=== PATIENT | female | born 1965 | race Caucasian/White ===

== ENCOUNTER → 2018-10-28 08:38 | Outpatient (CLI) | payer OTHER, SELFPAY ==
[2018-10-28 12:34] LABS: ALB/GLOB Ratio 1.2 RATIO (0.9-2.4); AST(SGOT) 15 U/L (15-37); Alanine Aminotransfer ALT/SGPT 29 U/L (13-56); Albumin, Serum 3.7 g/dL (3.2-5.0); Alkaline Phosphatase 53 U/L (45-117); Anion Gap 8 (5-15); BUN 20 mg/dL (7-18); Calcium,Total 8.7 mg/dL (8.5-10.1); Chloride 109 mmol/L (98-107); Cholesterol 153 mg/dL (200); Creatinine, Serum 0.77 mg/dL (0.55-1.02); EST Glomerular Filtration Rate 84 mL/min (>60); Est Glom Filt Rate - Afr Amer 101 mL/min (>60); Glucose 77 mg/dL (74-106); High Density Lipoprotein 38 mg/dL; Protein, Total 6.7 g/dL (6.4-8.2); Sodium Level 141 mmol/L (136-145); Triglycerides 75 mg/dL; Very Low Density Lipoprotein 15 mg/dL (5-40)
[2018-10-28 12:40] LABS: Absolute Lymphocyte Count 1.84 X10^3/ul (0.83-4.51); Absolute Neutrophil Count 4.1 X10^3/uL (2.0-7.7); Basophil# 0.02 X10^3/uL; Basophil% 0.3 % (0-1); Eosinophil# 0.23 X10^3/uL; Eosinophils% 3.4 % (0-5); Hematocrit 45.9 % (37-47); Hemoglobin 15.4 g/dl (12.0-15.0); Lymphocyte # 1.84 X10^3/ul (4.0); Lymphocyte % 27.2 % (19-41); Mean Corp Hgb Conc 33.6 g/gl (32-36); Mean Corpuscular Hgb 30.4 pg (27.0-32.0); Mean Corpuscular Volume 90.7 fL (81-99); Mean Platelet Vol. 10.4 fl (6.2-12.0); Monocyte# 0.51 X10^3/uL; Monocyte% 7.5 % (0-10); Neutrophil # 4.14 X10^3/uL (2.7-7.7); Neutrophil % 61.3 % (47-70); Platelet Count 272 K/mm3 (150-450); RBC Distribution Width CV 13.5 % (11.6-14.6); RBC Distribution Width SD 44.1 fl (35.1-43.9); Red Blood Count 5.06 M/mm3 (4.2-5.4); White Blood Count 6.8 K/mm3 (4.4-11.0)
[2018-10-28 12:42] LABS: POSITIVE COUNT NO; POSITIVE DIFFERENTIAL NO; POSITIVE MORPHOLOGY NO
--- OUTSIDE RECORDS SUMMARY | 2018-12-30 03:52 | XMS RPT_ITS ---
:1965 Author Organization OHIP Care Team Providers Name Role Phone Chary Bisi Attending Unavailable Malys, Bisi Primary Care Unavailable Wallingford, Ekaterina Attending Unavailable Malys, Bisi Referring Unavailable Malys, Bisi Primary Care Unavailable Treva, Smith Attending Unavailable Malys, Bisi Referring Unavailable Malys, Bisi Primary Care Unavailable Aleja, Ekaterina Attending Unavailable Malys, Bisi Referring Unavailable Malys, Bisi Primary Care Unavailable Wallingford, Ekaterina Attending Unavailable Malys, Bisi Referring Unavailable PROBLEMS PROBLEMS DATE TYPE CONDITION / CODE ATTENDING STATUS SOURCE 11/19/2017 Unknown Z30.431 - Encounter Ekaterina Masterson for routine Community checking of Hospital intrauterine Repository contraceptive device / Z30.431(ICD-10) 10/08/2017 Unknown N92.6 - Irregular Aleja, Ekaterina Active [facility] menstruation, Community unspecified / Hospital N92.6(ICD-10) Repository 09/24/2017 Unknown Z01.411 - Encounter [place], Molly Active [facility] for gynecological Community examination Hospital (general) (routine) Repository with abnormal findings / Z01.411(ICD-10) 09/24/2017 Unknown N92.0 - Excessive Aleja, Ekaterina Active [place] and frequent Community menstruation with Hospital regular cycle / Repository N92.0(ICD-10) 09/24/2017 Unknown Z12.4 - Encounter WallingfordMoisey Active [place] for screening for Community malignant neoplasm Hospital of cervix / Repository Z12.4(ICD-10) PROCEDURES PROCEDURES No Procedure Records FoundRESULTS RESULTS COMPREHENSIVE METABOLIC Collected: 10/28/2018 Status: F Source: OPAL PROFIL 8:40 AM [facility] H[facility]PITAL REPOSITORY TYPE CODE TESTS RESULT OUT OF RANGE REFERENCE UNITS LAB L501.0100 74-106 mg/dL Normal GLU 77 Result Comment: Please note revised GLUCOSE reference range effective 2017. LAB L501.1000 7-18 mg/dL High BUN 20 LAB L501.1100 0.55-1.02 mg/dL Normal CREAT,SERUM 0.77 Result Comment: The validity of the calculated GFR AND GFRAA in patients over 70 years has not been determined. Clinical correlation is essential. LAB L501.1110 >60 mL/min Normal EST GFR 84 Result Comment: Non- GFR Calc LAB L501.1115 >60 mL/min Normal EST GFR - AA 101 Result Comment: GFR Calc LAB L501.1300 10-20 RATIO High BUN/CRE 26.0 LAB L501.1500 6.4-8.2 g/dL T Normal PROT 6.7 LAB L501.1800 3.2-5.0 g/dL Normal ALB 3.7 LAB L501.1950 2.2-4.2 g/dL Normal GLOB 3.0 LAB L501.2000 0.9-2.4 RATIO Normal A/G 1.2 LAB L501.2200 8.5-10.1 mg/dL CA Normal 8.7 LAB L501.4100 15-37 U/L Normal AST 15 LAB L501.4305 45-117 U/L Normal ALK P 53 LAB L501.4405 13-56 U/L Normal ALT 29 LAB L501.4600 0.20-1.00 mg/dL T Normal BILI 0.50 LAB L501.5300 136-145 mmol/L NA Normal 141 LAB L501.5600 3.5-5.1 mmol/L K Normal 4.0 LAB L501.5900 98-107 mmol/L High CL 109 LAB L501.6100 21.0-32.0 mmol/L Normal CO2 24.0 LAB L501.6200 5-15 Normal GAP 8 Performed By: #### L500.4050, L500.4100 #### [facility] [address] [place], [place], [id number] LIPID PROFILE Collected: 10/28/2018 Status: F Source: DIXIE 8:40 AM [facility] REPOSITORY TYPE CODE TESTS RESULT OUT OF RANGE REFERENCE UNITS LAB L501.4900 200 mg/dL Normal CHOL 153 Result Comment: <200 mg/dL Desirable 200-240 mg/dL Borderline >240 mg/dL High Risk LAB L501.5000 mg/dL Normal TRIG 75 Result Comment: The drugs N-Acetylcysteine and Metamizole may falsely depress this assay. Serum Triglycerides Reference Interval Normal <150 mg/dL Borderline high 150 - 199 mg/dL High 200 - 499 mg/dL Very High > or = 500 mg/dL LAB L501.6400 mg/dL Low HDL 38 Result Comment: The drugs N-Acetylcysteine and Metamizole may falsely depress this assay. Reference Range HDL <40 mg/dL Low HDL Cholesterol HDL >or= 60 mg/dL High HDL Cholesterol LAB L501.6500 0-130 mg/dL Normal LDL 100 LAB L501.6600 5-40 mg/dL Normal VLDL 15 Performed By: #### L500.4050, L500.4100 #### [facility] [address] [place], [place], [address] CBC W/DIFF, AUTOMATED Collected: 10/28/2018 Status: F Source: DIXIE 8:40 AM [facility] REPOSITORY TYPE CODE TESTS RESULT OUT OF RANGE REFERENCE UNITS LAB L100.1000 4.4-11.0 K/mm3 Normal WBC 6.8 LAB L100.1200 4.2-5.4 M/mm3 Normal RBC 5.06 LAB L100.1300 12.0-15.0 g/dl High HGB 15.4 LAB L100.1400 37-47 % Normal HCT 45.9 LAB L100.1500 81-99 fL Normal MCV 90.7 LAB L100.1600 27.0-32.0 pg Normal MCH 30.4 LAB L100.1700 32-36 g/gl Normal MCHC 33.6 LAB L100.1810 11.6-14.6 % Normal RDW CV 13.5 LAB L100.1820 35.1-43.9 fl High RDW SD 44.1 LAB L100.1900 150-450 K/mm3 Normal PLT 272 LAB L100.2000 6.2-12.0 fl Normal MPV 10.4 LAB L100.2100 47-70 % Normal NEUT% 61.3 LAB L100.2200 19-41 % Normal LY% 27.2 LAB L100.2300 0-10 % Normal MONO% 7.5 LAB L100.2400 0-5 % Normal EO% 3.4 LAB L100.2500 0-1 % Normal BASO% 0.3 LAB L100.2550 0.0-0.9 % Normal IM GRAN % 0.300 Result Comment: IG% - Immature Granulocytes (promyelocytes, myelocytes and metamyelocytes) > 1% indicates that a LEFT SHIFT is Present. LAB L100.2620 2.0-7.7 X10 3/uL Normal Absolute Neut 4.1 LAB L100.2720 0.83-4.51 X10 3/ul Normal Absolute Lymph 1.84 Performed By: #### L100.0100 #### [facility] [address] [place], [address] COMPETITIVE INTELLIGENCE MANAGER OFFICE VISIT Observed: 08/11/2018 Status: F Source: OPAL REPORT 10:21 AM [facility] REPOSITORY [facility] [address] [place] [address] OFFICE VISIT Date of Service: 09/24/17 MR#: [id number] Acct: [id number] Name: BISI FORTE Rep #: [id number] : 1965 Provider: YURI Masterson Age/Sex: 52/F [place] [facility] Status: Signed with Addenda ADDENDUM by YURI Masterson on 08/11/18 at 1021 Addendum entered and electronically signed by OFELIA Mcmillan 08/11/18 10:21: Rectal exam was deferred. No masses palpated Assessment AND Plan 1. Encounter for gynecological examination with abnormal finding Z01.411; Z01.411 Plan - OFELIA Mcmillan Completed breast and pelvic exam Reviewed diet and exercise Pap thin prep pap collected Mammogram scheduled Colonoscopy encouraged RTO 1 year, prn with problems Ekaterina Masterson FOOT DOCTOR 2. Menorrhagia with regular cycle N92.0; N92.0 Plan - OFELIA Mcmillan Discussed insertion, use, benefits, risks of IUD. Will plan mirena IUD with next menses. Written formation given. She will call with onset of menses. Insurance auth to nurse to complete 3. Pap smear for cervical cancer screening Z12.4 Plan - OFELIA Mcmillan thin prep pap and HPV collected Plan Detail Other Medications Discontinued: levonorgestrel Discontinued Reason: Of1 insert Intrauterine ONCE #1 0RF Z97.5 fice Medication has been Documented as giv en hydrocodone-acetaminophen 5-325 mg Disc1 - 2 tabs PO Q4H PRN PRN 20 tabs 0RF Nataliya ontinued Reason: Pt no longer taking n 08/11/18 1021 <Electronically signed by Ekaterina GILBERT> Date Ekaterina Masterson cc: * Signed Intake Vital Signs09/24/17 Height 5 ft 7 in 09/24/17 Weight: 195 lb 09/24/17 Body Mass Index (BMI) 30.5 09/24/17 Blood Pressure 138/84 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 Chief Complaint: annual Is patient in pain?: No Allergies metronidazole [From Flagyl] Allergy (Verified 09/24/17 10:40) Rash Metronidazole HCl [From Flagyl] Allergy (Verified 09/24/17 10:40) Rash Medications Cyclobenzaprine [Flexeril] 10 mg PO TID PRN #20 tab 09/16/13 [Rx] Metoprolol(XL)Succ [Toprol Xl] 25 mg PO DAILY 09/16/13 [History Confirmed 09/24/17] Simvastatin [Zocor] 20 mg PO QHS 09/16/13 [History Confirmed 09/24/17] metoprolol succ 50 mg-hydrochlorothiazide 12.5 mg tablet,ext.rel 24 hr 1 tab PO Q24H 09/24/17 [History Confirmed 09/24/17] Pregancy History 2 Elective abortions Hx Para 2 Spontaneous abortions Past Pregnancies Del. DatName GA/WeeksOutcome Route [facility] WeigIndinoraht GLaanurag LgAnesthesDel LocaProviderFOB e ht en ia tn Unknown 1992 Tre[place] Female sey Unknown 1996 Pat erika [facility] Medical History Menorrhagia (Chronic) Acute pyelonephritis (Chronic) GERD (gastroesophageal reflux disease) (Chronic) HLD (hyperlipidemia) (Chronic) MVP (mitral valve prolapse) (Chronic) Oral contraceptive use (Chronic) Mitral valve prolapse (Acute) Surgical History H/O right breast biopsy (Acute) Hx of appendectomy (Acute) Social History Smoking Status: Never smoker substance use type: does not use what type of physical activity do you participate in: walking, weight training frequency: 1-2 times per week seatbelt use: always do you feel safe at home: Yes additional social history: Hyun HPI Encounter for routine gynecological examination: Details: BISI FORTE is a 52 year old who presents for annual exam. Has menses every month last 7 days and heavy. Went off OCP due to hypertension and mother hx of CVA. Interested in Mirena IUD as friend has one and works well for her. Last PAP: 2011 History of abnormal PAP: no Last mammogram: 09/2016 History of abnormal mammogram: neg biopsy Colon cancer screening: none ROS Const Constitutional: Denies fatigue, weight gain or weight loss Cardio Card: Denies chest pain Resp Resp: Denies cough or shortness of breath with activity GI GI: Denies abdominal pain, constipation, change in stools, vomiting or bloating : Reports as per HPI; denies urinary frequency, pelvic pain, urinary urgency, vaginal discharge, vaginal itching, urinary incontinence or difficulty urinating Exam Const General: cooperative, healthy appearing, no acute distress, well developed Orientation: alert, oriented to person, oriented to place [facility] Head: normal to inspection Neck Neck: normal visual inspection Thyroid: thyroid normal Lymphatic: no lymphadenopathy noted Resp Effort AND Inspection: normal respiratory effort Auscultation: clear to auscultation bilaterally Cardio Rate: regular rate Rhythm: regular rhythm GI Palpation: soft, nontender, no masses Rectal Exam: mass, deferred General: bimanual renal exam normal bilaterally External Female Exam: normal external appearance, normal appearance of the urethra Urethra: normal appearance of the urethra Speculum Exam - Vagina: normal appearance of the vagina, normal vaginal discharge Speculum Exam - Cervix: normal appearance of the cervix, cervical os open, other (thin prep pap with HPV collected) Bimanual Exam- Vagina AND Uterus: normal bimanual exam, uterine size normal, uterine shape normal, uterine mobility normal Bimanual Exam- Adnexa, other: normal adnexae, pelvic support normal, no adnexal masses, adnexae non-tender Pelvic Support: normal OB/External AND Speculum: cervical os open Speculum Exam: cervical os open Neuro General: alert, oriented x3 Psych Affect: normal affect Assessment AND Plan 1. Encounter for gynecological examination with abnormal finding Z01.411; Z01.411 Plan Completed breast and pelvic exam Reviewed diet and exercise Pap thin prep pap collected Mammogram scheduled Colonoscopy encouraged RTO 1 year, prn with problems Ekaterina Masterson FOOT DOCTOR 2. Menorrhagia with regular cycle N92.0; N92.0 Plan Discussed insertion, use, benefits, risks of IUD. Will plan mirena IUD with next menses. Written formation given. She will call with onset of menses. Insurance auth to nurse to complete 3. Pap smear for cervical cancer screening Z12.4 Plan thin prep pap and HPV collected Plan Detail Other Medications Discontinued: hydrocodone-acetaminophen 5-325 mg Discontinued Reason:1 - 2 tabs PO Q4H PRN PRN Pain Pt no longer taking 09/24/17 1127 <Electronically signed by Ekaterina Masterson ICT BUSINESS DEVELOPMENT MANAGER-C> Date Ekaterina Masterson ICT BUSINESS DEVELOPMENT MANAGER-C Cosigner Signature: Date (if applicable) CC: CARDIOLOGY VISIT Observed: 01/22/2018 Status: F Source: OPAL REPORT 2:18 PM [facility] REPOSITORY [facility] [address] [place] [address] OFFICE VISIT Date of Service: 01/21/18 MR#: [id number] Acct: [id number] Name: BISI FORTE Rep #: [id number] : 1965 Provider: Smith Tilley MD Age/Sex: 52/F Location[place] [facility] [place] Status: Signed HPI HPI Chief Complaint: Follow-up visit. Details: BISI FORTE, is a 52 F who presents to the office today for a follow-up visit for palpitations. She has a history of mitral valve prolapse hyperlipidemia and previous atrial fibrillation she had been seen last fall due to recurrence of her palpitations she says that since the visit and being placed on the beta-gerri the episodes and frequency of these have reduced quite significantly. She has had no neck arm or jaw discomfort suggest angina no dizziness or diaphoresis no near syncope or syncope. You do remember we performed an echocardiogram at that time with demonstrated ejection fraction of 55% with normal valvular apparatus. She continues to do well otherwise. Her physical exam demonstrates clear lung otero regular rate and rhythm and no pedal edema. Intake Vital Signs01/21/18 Height 5 ft 7 in 01/21/18 Weight: 190 lb 01/21/18 Body Mass Index (BMI) 29.7 01/21/18 Blood Pressure 120/80 Intake Visit Reasons: 6 M FU (needs Wed appts) Is patient in pain?: No Allergies metronidazole [From Flagyl] Allergy (Verified 01/21/18 10:32) Rash Metronidazole HCl [From Flagyl] Allergy (Verified 01/21/18 10:32) Rash Medications Metoprolol(XL)Succ [Toprol Xl] 25 mg PO DAILY 09/16/13 [History Confirmed 01/20/18] Simvastatin [Zocor] 20 mg PO QHS 12/12/13 [History Confirmed 01/20/18] levonorgestrel 20 mcg/24 hr (5 years) intrauterine device 1 insert INTRAUTERINE ONCE #1 ea 10/08/17 [Rx Confirmed 01/20/18] magnesium 250 mg tablet 250 mg PO QDAY 01/20/18 [History Confirmed 01/20/18] lactobacillus combination no.11 15 billion cell sprinkle capsule 1 cap PO QDAY 01/21/18 [History Confirmed 01/21/18] metoprolol succinate ER 50 mg tablet,extended release 24 hr 50 mg PO QDAY tab 01/21/18 [History Confirmed 01/21/18] Ejection fraction %: 55 to 59 [facility] Medical History Nonrheumatic mitral (valve) prolapse (Chronic) History of supraventricular tachycardia (Chronic) History of atrial fibrillation (Chronic) Hyperlipidemia (Chronic) GERD (gastroesophageal reflux disease) (Chronic) Surgical History H/O right breast biopsy (Chronic) Hx of appendectomy (Chronic) Family History Mother CVA (cerebral vascular accident) Hypertension Hyperlipidemia Brain aneurysm Father Hyperlipidemia Hypertension Brother Hyperlipidemia Hypertension Grandmother Alzheimer disease Grandfather Alzheimer disease Heart disease Social History Smoking Status: Never smoker substance use type: does not use what type of physical activity do you participate in: walking, weight training frequency: 1-2 times per week seatbelt use: always do you feel safe at home: Yes additional social history: Hyun ROS Const Const: Negative for fatigue, weakness, body ache, fever(s), headache(s), chills, frequent falls, night sweats, daytime sleepiness, difficulty sleeping, excessive sweating, weight gain, weight loss, increased appetite, poor appetite, anorexia or other Eyes Eyes: Negative for blind spots, loss of peripheral vision, transient loss of vision, blurry vision, change in vision, double vision, floaters, tunnel vision or other ENT ENT: Negative for headache(s), dizziness, hearing loss, tinnitus, Nosebleed/epistaxis, balance problems, post nasal drip, lip swelling, tongue swelling, bleeding gums, hoarseness, neck pain, dry mouth or other Cardio Chest Pain: No Palpitations: Yes (Rarely) Edema: None Muscle aches with walking: None Resp Respiratory: Negative for SOB with activity, SOB at rest, SOB orthopnea\SOB lying down, Coughing up blood/hemoptysis, chest congestion, pain on inspiration, snoring, stridor, wheezing, crackles, paroxysmal nocturnal dyspnea or other GI GI: Negative nausea, vomiting, heartburn, constipation, belching, bloating, cramping, vomiting blood/hematemesis, bright, red blood in stools, black,tarry stools, loose stools, Difficulty Swallowing or other : Negative for hematuria, frequent nighttime urination/ nocturia, erectile dysfunction or abnormal vaginal bleeding Musc Musc: Negative for balance problems, muscle aches/ myalgia, muscle weakness or joint pain Skin Skin: Negative redness, non-healing lesions, rash, unusual bruising, skin ulcer, wounds, jaundice or other Neuro Neuro: Negative for weakness, headache(s), frequent falls, blurry vision, double vision, dizziness, lightheadedness, near syncope, syncope, orthostatic symptoms, confusion, memory loss, restless legs, vertigo, seizures, lack of coordination or other John Hematologic/Lymphatic: Negative for easy bleeding, easy bruising, enlarged lymph nodes or other Endo Endo: Negative for fatigue, excessive sweating, cold intolerance, heat intolerance, flushing, increased thirst/drinking, increased hunger, hair loss, hair growth or other Psych Psych: Negative for anxiety, depression, thoughts of harming anyone, thoughts of harming yourself, visual hallucinations, panic attacks or audible hallucinations Allergy Allergy/Immunology: Negative for lip swelling, Negative for tongue swelling, Negative for rash, Negative for throat swelling, Negative for hives Cardiology Exam Const Appearance: cooperative, healthy appearing, well developed, well groomed and no acute distress Nutritional Appearance: well nourished and average body habitus Orientation: alert, awake and oriented x3 Head Head: normal to inspection, normocephalic and atraumatic Ears: hearing grossly normal bilaterally and external ears normal Nose: external nose normal, nasal mucous membranes and turbinates normal, nares normal, septum normal, no nasal discharge Face and Sinus: face symmetric Mouth: oral mucosae normal, tongue normal, oropharynx normal and moist mucous membranes Teeth and gingiva: dentition normal Throat: posterior oropharynx normal, tonsils normal and uvula midline Eyes General: appearance normal, both eyes and all related structures Eyelids: eyelids normal Conjunctivae: conjunctivae normal Pupils: PERRL, normal by confrontation and accommodation normal EOM: EOM intact bilaterally Neck Neck: normal visual inspection, trachea midline and no JVD JVD: +5 Carotids: normal carotid upstroke and bounding pulses Chest Chest inspection: normal inspection of the chest, symmetric chest movement and normal respiratory effort Auscultation: Bilateral: Clear to Auscultation Cardio Palpation: normal PMI Rate: regular rate Rhythm: regular rhythm Heart sounds: S1 normal, S2 normal and normal, physiologic split S2; negative rub, gallop or murmur GI GI: normal to inspection, soft, no hepatosplenomegaly and bowel sounds present Neuro General: alert, awake, oriented x3, no focal sensory deficit, gait normal and moves all extremities Skin Skin: no rashes or lesions noted Extremities Pulses: Normal: Right Femoral Pulse, Left Femoral Pulse, Right Dorsalis Pedis Pulse, Left Dorsalis Pedis Pulse, Right Posterior Tibial Pulse, Left Posterior Tibial Pulse, Right Radial Pulse, Left Radial Pulse Lower Extremity Edema: None: Bilateral Musculoskel Musculoskeletal: No joint tenderness Psych Psychological: normal affect Assessment AND Plan 1. History of supraventricular tachycardia Z86.79 Plan She does have a history of palpitations which appears to be much improved on the current beta-gerri dosage that she is taking. My recommendation would be for her to continue the same. On a suggest that she make any changes. She has also lost some weight and if the above continues we may be to reduce the dose further to 50 mg once a day. 2. Pure hypercholesterolemia E78.00; E78.0 Plan Her lipid profile at this time appears to be decent with a total cholesterol 169 LDL of 101 and HDL 37 she remains on her low intensity statin which will be continued. Thank you for allowing me to participate in the care of your patient. 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) Coding Level of Care Code Off vis,est,level 3 Diagnoses History of supraventricular tachycardia Z86.79 Pure hypercholesterolemia E78.00; E78.0 Hyperlipidemia type: pure hypercholesterolemia Coding Level of Care Code Off vis,est,level 3 Diagnoses History of supraventricular tachycardia Z86.79 Pure hypercholesterolemia E78.00; E78.0 Hyperlipidemia type: pure hypercholesterolemia 01/22/18 1418 <Electronically signed by Smith Tilley MD> Date Smith Tilley MD Cosigner Signature: Date (if applicable) CC: Bisi Diez DO COMPETITIVE INTELLIGENCE MANAGER OFFICE VISIT Observed: 11/19/2017 Status: F Source: OPAL REPORT 9:16 AM [facility] 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: No Is patient in pain?: No Allergies metronidazole [From Flagyl] Allergy (Verified 11/19/17 09:00) Rash Metronidazole HCl [From Flagyl] Allergy (Verified 11/19/17 09:00) Rash Medications Metoprolol(XL)Succ [Toprol Xl] 25 mg PO DAILY 09/16/13 [History Confirmed 11/19/17] Simvastatin [Zocor] 20 mg PO QHS 09/16/13 [History Confirmed 11/19/17] levonorgestrel 20 mcg/24 hr (5 years) intrauterine device 1 insert INTRAUTERINE ONCE #1 ea 10/08/17 [Rx Confirmed 11/19/17] metoprolol succinate ER 50 mg tablet,extended release 24 hr 50 mg PO BID 10/08/17 [History Confirmed 11/19/17] Is last menstrual period known: No Post menopausal: No Patient : No : No PFSH Medical History GERD (gastroesophageal reflux disease) (Acute) Hyperlipidemia (Acute) Mitral valve prolapse (Acute) Surgical History H/O right breast biopsy (Acute) Hx of appendectomy (Acute) Family History Mother CVA (cerebral vascular accident) Hypertension Hyperlipidemia Brain aneurysm Father Hyperlipidemia Hypertension Brother Hyperlipidemia Hypertension Grandmother Alzheimer disease Grandfather Alzheimer disease Heart disease Social History Smoking Status: Never smoker substance use type: does not use what type of physical activity do you participate in: walking, weight training frequency: 1-2 times per week seatbelt use: always do you feel safe at home: Yes additional social history: Hyun KOVACS STRING CHECK: Details: BISI FORTE is a 52 year old who presents for recheck of mirena IUD placed 10/08/17. Denies any irregular spotting or cramping. Very light 1 day menses. Denies other concerns. Pregancy History 2 Elective abortions Hx Para 2 Spontaneous abortions Past Pregnancies Del. DatName GA/WeeksOutcome [facility] tn Unknown 1992 Tre[place] Female sey Unknown 1996 Pat erika Exam General: bladder normal to palpation External Female Exam: normal external appearance, normal appearance of the urethra Urethra: normal appearance of the urethra Speculum Exam - Vagina: normal appearance of the vagina, normal vaginal discharge, nontender, no lesions Speculum Exam - Cervix: normal appearance of the cervix, other (smooth, nonfriable, IUD strings noted 3cm from os) Bimanual Exam- Vagina AND Uterus: bladder normal to palpation, normal bimanual exam, uterine size normal, uterine shape normal, uterine mobility normal, uterus non-tender Bimanual Exam- Adnexa, other: normal adnexae, no adnexal masses, adnexae non-tender Assessment AND Plan Problems 1. IUD check up Z30.431 Plan Proper placement of IUD RTO annual exam, prn problems Coding Level of Care Code Off vis,est,level 3 Diagnoses IUD check up Z30.431 11/19/17 0916 <Electronically signed by Ekaterina GILBERT> Date Ekaterina GILBERT Cosigner Signature: Date (if applicable) CC: COMPETITIVE INTELLIGENCE MANAGER OFFICE VISIT Observed: 11/12/2017 Status: F Source: OPAL REPORT 8:25 AM [facility] [address] [address] [place] [address] OFFICE VISIT Date of Service: 10/08/17 MR#: [id number] Acct: [id number] Name: VNAESSABISI Jhonny Rep #: [id number] : 1965 Provider: YURI Masterson Age/Sex: 52/F Location: [facility] Status: Signed Intake Vital Signs10/08/17 Height 5 ft 7 in 10/08/17 Weight: 198 lb 10/08/17 Body Mass Index (BMI) 31.0 10/08/17 Blood Pressure 132/72 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 Visit 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: MIRENA INSERTION Chief Complaint: IUD Rolled Glass Crosscutter Required: No Is patient in pain?: No Allergies metronidazole [From Flagyl] Allergy (Verified 10/08/17 11:24) Rash Metronidazole HCl [From Flagyl] Allergy (Verified 10/08/17 11:24) Rash Medications Metoprolol(XL)Succ [Toprol Xl] 25 mg PO DAILY 09/16/13 [History Confirmed 09/24/17] Simvastatin [Zocor] 20 mg PO QHS 09/16/13 [History Confirmed 09/24/17] levonorgestrel 20 mcg/24 hr (5 years) intrauterine device 1 insert INTRAUTERINE ONCE #1 ea 10/08/17 [Rx Confirmed 10/08/17] metoprolol succinate ER 50 mg tablet,extended release 24 hr 50 mg PO BID 10/08/17 [History Confirmed 10/08/17] Is last menstrual period known: Yes Last Menstral Period: 10/04/17 Post menopausal: No Patient : No : No PFSH Medical History Menorrhagia (Chronic) Acute pyelonephritis (Chronic) GERD (gastroesophageal reflux disease) (Chronic) HLD (hyperlipidemia) (Chronic) MVP (mitral valve prolapse) (Chronic) Oral contraceptive use (Chronic) GERD (gastroesophageal reflux disease) (Acute) Hyperlipidemia (Acute) Mitral valve prolapse (Acute) Surgical History H/O right breast biopsy (Acute) Hx of appendectomy (Acute) Family History Mother CVA (cerebral vascular accident) Hypertension Hyperlipidemia Brain aneurysm Father Hyperlipidemia Hypertension Brother Hyperlipidemia Hypertension Grandmother Alzheimer disease Grandfather Alzheimer disease Heart disease Social History Smoking Status: Never smoker substance use type: does not use what type of physical activity do you participate in: walking, weight training frequency: 1-2 times per week seatbelt use: always do you feel safe at home: Yes additional social history: Hyun Pregancy History 2 Elective abortions Hx Para 2 Spontaneous abortions Past Pregnancies Del. DatName GA/WeeksOutcome [facility] LgAnesthesDel LocaProviderFOB e ht en tn Unknown 1992 [place] Female sey Unknown [facility] MIRENA INSERTION: Details: BISI FORTE is a 52 year old who presents for mirena IUD insertion for menorrhagia Female Reproductive History Last Menstral Period: 10/04/17 Office Procedures IUD Insertion IUD GC/Chlamydia:: not done Test: Yes Negative Consent Signed: Yes Time out checklist: patient, procedure, site marked/identified, positioning of patient, supplies available, allergies confirmed, team agrees on procedure IUD: Yes Mirena Time out time: 11:39 Lot number: [id number] date: 01/05/20 Details: Sign in Communication: Completed Sign out documentation: Completed The uterus sounded to 8 cm. After prepping the cervix with betadine and using sterile technique, the cervix was grasped with a single tooth tenaculum and the IUD was inserted without difficulty and the string was cut to 3cm from the external os of the cervix. All instruments were removed from the vagina and excellent hemostasis was noted. Procedure Summary: patient tolerated the procedure well without complication. Mirena IUD IUD Details: Sign in Communication: Completed Sign out documentation: Completed The uterus sounded to [] cm. After prepping the cervix with betadine and using sterile technique, the cervix was grasped with a single tooth tenaculum and the IUD was inserted without difficulty and the string was cut to 3cm from the external os of the cervix. All instruments were removed from the vagina and excellent hemostasis was noted. Procedure Summary: patient tolerated the procedure well without complication. levonorgestrel 20 mcg/24 hr (5 years) intrauterine device 1 insert Intrauterine ONCE IUD Details: Sign in Communication: Completed Sign out documentation: Completed The uterus sounded to [] cm. After prepping the cervix with betadine and using sterile technique, the cervix was grasped with a single tooth tenaculum and the IUD was inserted without difficulty and the string was cut to 3cm from the external os of the cervix. All instruments were removed from the vagina and excellent hemostasis was noted. Procedure Summary: patient tolerated the procedure well without complication. Office Meds levonorgestrel Performing Provider: OFELIA Mcmillan Administered by: OFELIA Mcmillan on 10/08/17 13:00 Dose Route Admin Location Lot Number Expiration DateNDC Manager Critical Care 1 insert Intrauterine uterus [id number] 01/24/20 05110-432-31 BEN,PHARM DIV Results BMSPREGUR Office , Urine Negative Last Edit by Viji Brizuela on 10/08/17 11:30 Assessment AND Plan Problems 1. Encounter for IUD insertion Z30.430 2. Menorrhagia with regular cycle N92.0 Plan Handout and reviewed S AND S infection RTO 6 weeks Orders Orders: Medications New: Discontinued: levonorgestrel Discontinued Reason1 insert Intrauterine ONCE Z97.5 OFELIA Mcmillan : Office Medication has been Documen lewis as given Plan Detail Follow Up 6 Weeks (IUD check) 11/12/17 0829 <Electronically signed by Ekaterina GILBERT> Date Ekaterina Nances ICT BUSINESS DEVELOPMENT MANAGER-C Cosigner Signature: Date (if applicable) CC: ALLERGIES ALLERGIES DATE TYPE / CODE NAME / CODE REACTION SEVERITY SOURCE 01/21/2018 Drug Metronidazole Rash Unknown [place] Allergy/416 HCl/[id number](RXNO [facility] [id number]([facility] ED [facility]) Repository 01/21/2018 Drug metronidazole/F0060 Rash Unknown [place] Allergy/416 55000(RXNO) [facility] [id number]([facility]) Repository ENCOUNTERS ENCOUNTERS ADMIT/DISCHARGE ACCOUNT ADMITTING ENCOUNTER LOCATION SOURCE NUMBER CLASS 10/28/2018 [id number] Ambulatory [place] 8 [facility] ing:BFHLAB Repository 01/21/2018/ [id number] Ambulatory BMSBuilding:B [place] 8 5 [facility] Repository 11/19/2017/ [id number] Ambulatory BMSBuilding:B [place] 8 6 [facility] Repository 10/08/2017/ [id number] Ambulatory BMSBuilding:B [place] 8 6 [facility] Repository 09/24/2017/ [id number] Ambulatory BMSBuilding:B [place] 7 5 [facility] Repository PAYERS PAYERS ENCOUNTER GUARANTOR PAYER SUBSCRIBER SOURCE 10/28/2018 Hyun Forte520 Primary Hyunleonor Parsons [facility]3], Insurance:MEDICAL [facility] [address]Hlr: [facility] [id number] Hospital Number: Repository () [id number] Date:1729-38-06[address] [facility] [place] [id number]: 10/28/2018 Secondary NOT GIVENUNK [place] Insurance:SELF PAY [facility] Number: Effective Repository Date:2018-10-28 01/21/2018 Hyun Smith0 Primary Hyun [place], Insurance:MEDICAL [place]OB: [place] [address]Oqa: [address] Number: Repository () [id number] Date:[id number] [address] [address]CV: 01/21/2018 Secondary NOT GIVENUNK [place] Insurance:SELF PAY [facility] Number: Effective Repository Date:2018-01-21 11/19/2017 Hyun Smith0 Primary [place], Insurance:MEDICAL McgintyDOB: [facility] [address]Dsr: [address] Number: Repository () [id number] Date:[id number] [address] [address]BR: 11/19/2017 Secondary NOT GIVENUNK [place] Insurance:SELF PAY [facility] Number: Effective Repository Date:2017-10-08 10/08/2017 Hyun Smith0 Primary [place], Insurance:MEDICAL [place]DOB: [place] [address]Ixp: [address] Number: Repository () [id number] Date:[id number] [address] [address]IC: 10/08/2017 Secondary NOT GIVENUNK [place] Insurance:SELF PAY [facility] Number: Effective Repository Date:2017-10-07 09/24/2017 Huyn Smith0 Primary [place]un [place], Insurance:MEDICAL McgintyDOB: [facility] [place] [address]Ziz: [address] Number: Repository () [id number] Date:[id number] [address] [address]PA: 09/24/2017 Secondary NOT GIVENUNK [place] Insurance:SELF PAY [place] [facility]: Effective Repository Date:2017-09-07
== END ==
PROVIDERS: Family Provider Family Medicine; PCP Family Medicine; Visit Provider Family Medicine
DX: E78.5 Hyperlipidemia, unspecified (principal); Z51.81 Encounter for therapeutic drug level monitoring
CPT/HCPCS: 36415; 80053; 80061; 85025

== ENCOUNTER → 2018-11-18 08:31 | Outpatient (CLI) | payer OTHER, SELFPAY ==
[2018-01-21 10:32] VITALS: BMI 29.7
--- NOTE | 2018-11-18 08:38 | BI_ITS ---
MAMMOGRAPHY - BILATERAL SCREENING REASON FOR EXAM: Female, 53 years old. Routine annual screening examination. PERTINENT HISTORY: Non-contributory. Remote right stereotactic breast biopsy. TECHNIQUE: Digital bilateral breast bartolo (3D mammographic acquisition) in the CC and MLO projections. 2-D mediolateral oblique (MLO) and craniocaudad (CC) views of both breasts were obtained. CAD: Full Field Digital Mammography with Computer Added Detection was performed. COMPARISON: Comparison is made with prior study dated October 01, 2017. FINDINGS: Breast Composition: There are scattered areas of fibroglandular density. There are no dominant masses or suspicious calcifications. No other significant abnormalities are identified. There has been no significant change since the prior study. BI/SCREENING MAMM (CAD), BILAT IMPRESSION: Stable bilateral screening mammogram. Yearly follow-up mammogram recommended. (A) ASSESSMENT CATEGORY: BIRADS Category 1: Negative. A letter regarding these results will be sent to the patient by the facility within 30 days. Approximately 10% of breast cancers are not detected by mammography. A normal mammogram should not delay biopsy of a clinically suspicious abnormality. [id number] Electronically Signed: Sanya Headley MD at 9:48 EST , Service support ,
== END ==
PROVIDERS: Family Provider Family Medicine; PCP Family Medicine; Referring Provider Nurse Practitioner Women's Health; Visit Provider Nurse Practitioner Women's Health
DX: Z12.31 Encounter for screening mammogram for malignant neoplasm of breast (principal)
CPT/HCPCS: 77063; 77067

== ENCOUNTER → 2019-04-21 | Outpatient (CLI) | payer OTHER, SELFPAY ==
[2019-02-24 09:26] VITALS: BMI 29.1
--- NOTE | 2019-04-21 | LES_PTH ---
PATIENT: BISI MENDEZ LOC: [facility] U#:[id number] AGE/SX: 53/F ROOM: RE04/21/[address]: Dr. Sergo Glass DDS : 1965 BED: DIS: 04/21/2019 SPEC #: [id number] RECD: 04/21/19 11:46 STATUS: SANGEETHA RESanket #: [id number] RICA: 04/21/19 00:[address]: Sergo Glass DEPT: SURGICAL PATHOLOGY RECD BY: Carlito Middleton ENTERED: 04/21/19 12:39 SP TYPE: Lesion OTHR DR: Dr. Bisi Diez, DO Tissues: Skin of lip, NOS Procedures: Surgery Specimen Level IV HEADER OPERATION: Biopsy right lip PRE-OP DIAGNOSIS: Two-year history for growth; fibroma most likely TISSUE SUBMITTED: Biopsy right lip MICROSCOPIC DIAGNOSIS Right lip, biopsy: Mild dermal fibrosis and focal hyperkeratosis. See comment. AM:ovidio 04/23/19 COMMENT Features of dermatofibroma are not present. Clinical correlation is suggested. Case has been reviewed in consultation with Dr. Gomez who concurs with the above diagnosis. IDC:GIOVANI MICROSCOPIC DESCRIPTION Slides are reviewed. GROSS DESCRIPTION Received is one container labeled with the patient's name and not further designated. The specimen consists of a piece of landers mucosal tissue measuring 0.8 x 0.5 x 0.4 cm. The specimen is inked, bisected and submitted entirely in one cassette. / GIOVANI:ovidio 04/21/19 TC:5 CPT: 72119
== END | disposition home or self-care (01) ==
LOC: LABSPEC 12:27
PROVIDERS: Family Provider Family Medicine; PCP Family Medicine; Referring Provider Dentist Oral and Maxillofacial Surgery; Visit Provider Dentist Oral and Maxillofacial Surgery
DX: L90.5 Scar conditions and fibrosis of skin (principal); L85.8 Other specified epidermal thickening
CPT/HCPCS: 88305

== ENCOUNTER → 2019-11-03 10:30 | Outpatient (CLI) | payer OTHER, SELFPAY ==
[2019-02-24 09:26] VITALS: BMI 29.1
[2019-11-03 12:34] LABS: Absolute Lymphocyte Count 2.02 X10^3/uL (0.83-4.51); Absolute Neutrophil Count 3.7 X10^3/uL (2.0-7.7); Basophil# 0.02 X10^3/uL; Basophil% 0.3 % (0-1); Eosinophil# 0.35 X10^3/uL; Eosinophils% 5.3 % (0-5); Hematocrit 47.2 % (37-47); Hemoglobin 15.5 g/dL (12.0-15.0); Lymphocyte # 2.02 X10^3/ul (4.0); Lymphocyte % 30.8 % (19-41); Mean Corp Hgb Conc 32.8 g/dL (32-36); Mean Corpuscular Hgb 29.6 pg (27.0-32.0); Mean Corpuscular Volume 90.2 fL (81-99); Mean Platelet Vol. 10.3 fl (6.2-12.0); Monocyte# 0.44 X10^3/uL; Monocyte% 6.7 % (0-10); NRBC Flagged by Analyzer 0 % (0-5); Neutrophil % 56.6 % (47-70); Platelet Count 261 K/mm3 (150-450); RBC Distribution Width CV 12.9 % (11.6-14.6); RBC Distribution Width SD 42.7 fl (35.1-43.9); Red Blood Count 5.23 M/mm3 (4.2-5.4); White Blood Count 6.6 K/mm3 (4.4-11.0)
[2019-11-03 12:42] LABS: ALB/GLOB Ratio 1.1 RATIO (0.9-2.4); AST(SGOT) 18 U/L (15-37); Alanine Aminotransfer ALT/SGPT 36 U/L (13-56); Albumin, Serum 3.7 g/dL (3.2-5.0); Alkaline Phosphatase 55 U/L (45-117); Anion Gap 4 (5-15); BUN 20 mg/dL (7-18); BUN/Creat Ratio 23.9 RATIO (10-20); Chloride 110 mmol/L (98-107); Cholesterol 167 mg/dL (200); Creatinine, Serum 0.84 mg/dL (0.55-1.02); EST Glomerular Filtration Rate 75 mL/min (>60); Est Glom Filt Rate - Afr Amer 91 mL/min (>60); Globulin 3.4 g/dL (2.2-4.2); Glucose 75 mg/dL (74-106); High Density Lipoprotein 39 mg/dL; Potassium 4.1 mmol/L (3.5-5.1); Protein, Total 7.1 g/dL (6.4-8.2); Sodium Level 139 mmol/L (136-145); Triglycerides 85 mg/dL; Very Low Density Lipoprotein 17 mg/dL (5-40)
== END ==
PROVIDERS: Family Provider Family Medicine; PCP Family Medicine; Visit Provider Family Medicine
DX: E78.5 Hyperlipidemia, unspecified (principal); Z51.81 Encounter for therapeutic drug level monitoring
CPT/HCPCS: 36415; 80053; 80061; 85025

== ENCOUNTER → 2019-11-24 08:30 | Outpatient (CLI) | payer OTHER, SELFPAY ==
[2019-02-24 09:26] VITALS: BMI 29.1
--- NOTE | 2019-11-24 08:31 | BI_ITS ---
MAMMOGRAPHY - BILATERAL SCREENING REASON FOR EXAM: Female, 54 years old. Routine annual screening examination. PERTINENT HISTORY: Non-contributory. Remote right stereotactic breast biopsy. TECHNIQUE: Digital bilateral breast marino (3D mammographic acquisition) in the CC and MLO projections. 2-D mediolateral oblique (MLO) and craniocaudad (CC) views of both breasts were obtained. CAD: Full Field Digital Mammography with Computer Added Detection was performed. COMPARISON: Comparison is made with prior study dated November 18, 2018 and October 01, 2017. FINDINGS: Breast Composition: There are scattered areas of fibroglandular density. There are no dominant masses or suspicious calcifications. Small benign-appearing bilateral axillary lymph nodes. No other significant abnormalities are identified. There has been no significant change since the prior study. BI/SCREEN MAMM (CAD) W/MARINO BILAT IMPRESSION: Stable bilateral screening mammogram. Yearly follow-up mammogram recommended. (A) ASSESSMENT CATEGORY: BIRADS Category 2: Benign. A letter regarding these results will be sent to the patient by the facility within 30 days. Approximately 10% of breast cancers are not detected by mammography. A normal mammogram should not delay biopsy of a clinically suspicious abnormality. [id number] Electronically Signed: Sanya Headley, at 9:29 EST , Service support ,
== END ==
PROVIDERS: Family Provider Family Medicine; PCP Family Medicine; Referring Provider Nurse Practitioner Women's Health; Visit Provider Nurse Practitioner Women's Health
DX: Z12.31 Encounter for screening mammogram for malignant neoplasm of breast (principal)
CPT/HCPCS: 77063; 77067

== ENCOUNTER → 2020-11-29 07:28 | Outpatient (CLI) | payer OTHER, SELFPAY ==
[2020-02-23 08:10] VITALS: BMI 28.5
--- NOTE | 2020-11-29 07:31 | BI_ITS ---
MAMMOGRAPHY - BILATERAL SCREENING REASON FOR EXAM: Female, 55 years old. Routine annual screening examination. PERTINENT HISTORY: Non-contributory. Remote right stereotactic breast biopsy. TECHNIQUE: Digital bilateral breast marino (3D mammographic acquisition) in the CC and MLO projections. 2-D mediolateral oblique (MLO) and craniocaudad (CC) views of both breasts were obtained. CAD: Full Field Digital Mammography with Computer Added Detection was performed. COMPARISON: Comparison is made with prior examination dated 11/24/2019 and 11/18/2018. FINDINGS: Breast Composition: There are scattered areas of fibroglandular density. There are no dominant masses or suspicious calcifications. Stable benign appearing bilateral axillary lymph nodes. No other significant abnormalities are identified. There has been no significant change since the prior study. BI/SCRN MAMM (CAD)W/MARINO BILAT IMPRESSION: Stable bilateral screening mammogram. Yearly follow-up mammogram recommended. (A) ASSESSMENT CATEGORY: BIRADS Category 2: Benign. A letter regarding these results will be sent to the patient by the facility within 30 days. Approximately 10% of breast cancers are not detected by mammography. A normal mammogram should not delay biopsy of a clinically suspicious abnormality. [id number] Electronically Signed: Snaya Headley MD at 8:46 EST , Service support ,
[2020-12-02 14:26] LABS: HPV APTIMA, High Risk Negative (Negative)
== END ==
PROVIDERS: PCP Family Medicine; Referring Provider Nurse Practitioner Women's Health; Visit Provider Nurse Practitioner Women's Health
DX: Z12.31 Encounter for screening mammogram for malignant neoplasm of breast (principal); Z12.4 Encounter for screening for malignant neoplasm of cervix
CPT/HCPCS: 77063; 77067; 87624; 88175; G0145

== ENCOUNTER → 2021-03-14 09:04 | Outpatient (CLI) | payer OTHER, SELFPAY ==
[2021-02-28 09:19] VITALS: BMI 31.3
[2021-03-14 12:13] LABS: Absolute Neutrophil Count 5.2 X10^3/uL (2.0-7.7); Basophil# 0.03 X10^3/uL; Basophil% 0.4 % (0-1); Eosinophil# 0.22 X10^3/uL; Eosinophils% 2.9 % (0-5); Hematocrit 46.5 % (37-47); Hemoglobin 15.2 g/dL (12.0-15.0); Lymphocyte % 19.8 % (19-41); Mean Corp Hgb Conc 32.7 g/dL (32-36); Mean Corpuscular Hgb 29.7 pg (27.0-32.0); Mean Corpuscular Volume 90.8 fL (81-99); Mean Platelet Vol. 10.3 fl (6.2-12.0); Monocyte% 7.9 % (0-10); NRBC Flagged by Analyzer 0 % (0-5); Neutrophil # 5.19 X10^3/uL (2.7-7.7); Neutrophil % 68.3 % (47-70); Platelet Count 258 K/mm3 (150-450); RBC Distribution Width CV 12.8 % (11.6-14.6); RBC Distribution Width SD 42.5 fl (35.1-43.9); Red Blood Count 5.12 M/mm3 (4.2-5.4); White Blood Count 7.6 K/mm3 (4.4-11.0)
[2021-03-14 12:38] LABS: ALB/GLOB Ratio 1.1 RATIO (0.9-2.4); AST(SGOT) 19 U/L (15-37); Alanine Aminotransfer ALT/SGPT 33 U/L (13-56); Albumin, Serum 3.5 g/dL (3.2-5.0); Alkaline Phosphatase 60 U/L (45-117); Anion Gap 6 (5-15); BUN 19 mg/dL (7-18); BUN/Creat Ratio 23.9 RATIO (10-20); Calcium,Total 8.6 mg/dL (8.5-10.1); Chloride 107 mmol/L (98-107); Cholesterol 159 mg/dL (200); EST Glomerular Filtration Rate 80 mL/min (>60); Est Glom Filt Rate - Afr Amer 97 mL/min (>60); Globulin 3.1 g/dL (2.2-4.2); Glucose 72 mg/dL (74-106); High Density Lipoprotein 39 mg/dL; Potassium 3.8 mmol/L (3.5-5.1); Protein, Total 6.6 g/dL (6.4-8.2); Sodium Level 140 mmol/L (136-145); Triglycerides 87 mg/dL; Very Low Density Lipoprotein 17 mg/dL (5-40)
== END ==
PROVIDERS: PCP Family Medicine; Referring Provider Family Medicine; Visit Provider Family Medicine
DX: E78.5 Hyperlipidemia, unspecified (principal); Z51.81 Encounter for therapeutic drug level monitoring
CPT/HCPCS: 36415; 80053; 80061; 85025

== ENCOUNTER → 2021-09-14 08:43 | Outpatient (CLI) | payer OTHER, SELFPAY ==
[2021-09-14 10:57] LABS: Cholesterol 167 mg/dL (200); High Density Lipoprotein 31 mg/dL; Triglycerides 73 mg/dL; Very Low Density Lipoprotein 15 mg/dL (5-40)
== END ==
PROVIDERS: PCP Family Medicine; Referring Provider Family Medicine; Visit Provider Family Medicine
DX: E78.5 Hyperlipidemia, unspecified (principal)
CPT/HCPCS: 36415; 80061

== ENCOUNTER 2022-01-16 10:11 | Outpatient (CLI) | payer OTHER, SELFPAY ==
--- NOTE | 2022-01-16 10:13 | BI_ITS ---
MAMMOGRAPHY - BILATERAL SCREENING REASON FOR EXAM: Female, 56 years old. Routine annual screening examination. PERTINENT HISTORY: Non-contributory. Remote right stereotactic breast biopsy. TECHNIQUE: Digital bilateral breast marino (3D mammographic acquisition) in the CC and MLO projections. 2-D mediolateral oblique (MLO) and craniocaudad (CC) views of both breasts were obtained. CAD: Full Field Digital Mammography with Computer Added Detection was performed. COMPARISON: Comparison is made with prior study of 11/29/2020 and 11/24/2019. FINDINGS: Breast Composition: There are scattered areas of fibroglandular density. There are no dominant masses or suspicious calcifications. Stable small bilateral axillary lymph nodes. No other significant abnormalities are identified. There has been no significant change since the prior study. BI/SCRN MAMM (CAD)W/MARINO BILAT IMPRESSION: Stable bilateral screening mammogram. Yearly follow-up mammogram recommended. (A) ASSESSMENT CATEGORY: BIRADS Category 2: Benign. A letter regarding these results will be sent to the patient by the facility within 30 days. Approximately 10% of breast cancers are not detected by mammography. A normal mammogram should not delay biopsy of a clinically suspicious abnormality. [id number] Electronically Signed: Sanya Headley MD at 10:59 EDT ,
== END 2022-01-16 23:59 | disposition home or self-care (01) ==
LOC: OPBI 10:12
PROVIDERS: PCP Family Medicine; Visit Provider Nurse Practitioner Women's Health
DX: Z12.31 Encounter for screening mammogram for malignant neoplasm of breast (principal)
CPT/HCPCS: 77063; 77067

== ENCOUNTER → 2022-05-13 | Outpatient (CLI) | payer OTHER, SELFPAY ==
[2022-05-13 10:11] LABS: Absolute Lymphocyte Count 1.98 X10^3/uL (0.83-4.51); Absolute Neutrophil Count 3.5 X10^3/uL (2.0-7.7); Basophil# 0.04 X10^3/uL; Basophil% 0.6 % (0-1); Eosinophil# 0.22 X10^3/uL; Eosinophils% 3.6 % (0-5); Hemoglobin 15.2 g/dL (12.0-15.0); Lymphocyte # 1.98 X10^3/ul (0.83-4.51); Lymphocyte % 32.1 % (19-41); Mean Corp Hgb Conc 33.8 g/dL (32-36); Mean Corpuscular Hgb 30.3 pg (27.0-32.0); Mean Corpuscular Volume 89.6 fL (81-99); Mean Platelet Vol. 9.9 fl (6.2-12.0); Monocyte# 0.44 X10^3/uL; Monocyte% 7.1 % (0-10); NRBC Flagged by Analyzer 0 % (0-5); Neutrophil # 3.47 X10^3/uL (2.7-7.7); Neutrophil % 56.3 % (47-70); Platelet Count 264 K/mm3 (150-450); RBC Distribution Width SD 42.6 fl (35.1-43.9); Red Blood Count 5.02 M/mm3 (4.2-5.4); White Blood Count 6.2 K/mm3 (4.4-11.0)
[2022-05-13 10:35] LABS: ALB/GLOB Ratio 1.1 RATIO (0.9-2.4); AST(SGOT) 15 U/L (15-37); Alanine Aminotransfer ALT/SGPT 22 U/L (13-56); Albumin, Serum 3.6 g/dL (3.2-5.0); Alkaline Phosphatase 62 U/L (45-117); Anion Gap 6 (5-15); BUN 25 mg/dL (7-18); Calcium,Total 9.1 mg/dL (8.5-10.1); Chloride 108 mmol/L (98-107); Cholesterol 200 mg/dL (200); Creatinine, Serum 0.81 mg/dL (0.55-1.02); EST Glomerular Filtration Rate 78 mL/min (>60); Est Glom Filt Rate - Afr Amer 95 mL/min (>60); Globulin 3.3 g/dL (2.2-4.2); Glucose 89 mg/dL (74-106); High Density Lipoprotein 41 mg/dL; Potassium 3.8 mmol/L (3.5-5.1); Protein, Total 6.9 g/dL (6.4-8.2); Sodium Level 140 mmol/L (136-145); Triglycerides 101 mg/dL; Very Low Density Lipoprotein 20 mg/dL (5-40)
== END | disposition home or self-care (01) ==
LOC: MTLAB 07:05
PROVIDERS: PCP Family Medicine; Referring Provider Family Medicine; Visit Provider Family Medicine
DX: Z00.00 Encounter for general adult medical examination without abnormal findings (principal); E78.5 Hyperlipidemia, unspecified
CPT/HCPCS: 36415; 80053; 80061; 85025

== ENCOUNTER → 2023-02-04 | Outpatient (CLI) | payer OTHER, SELFPAY | END | disposition home or self-care (01) | LOC: LABSPEC 09:55 | PROVIDERS: PCP Family Medicine; Referring Provider Nurse Practitioner Women's Health; Visit Provider Nurse Practitioner Women's Health | DX: N89.8 Other specified noninflammatory disorders of vagina (principal) | CPT/HCPCS: 87070; 87205; 87255 ==

== ENCOUNTER → 2023-03-19 | Outpatient (CLI) | payer OTHER, SELFPAY ==
--- NOTE | 2023-03-19 08:08 | BI_ITS ---
MAMMOGRAPHY - BILATERAL SCREENING REASON FOR EXAM: Female, 57 years old. Routine annual screening examination. PERTINENT HISTORY: Non-contributory. History of remote right stereotactic breast biopsy. TECHNIQUE: Digital bilateral breast marino (3D mammographic acquisition) in the CC and MLO projections. 2-D mediolateral oblique (MLO) and craniocaudad (CC) views of both breasts were obtained. CAD: Full Field Digital Mammography with Computer Added Detection was performed. COMPARISON: Comparison is made with prior examination dated January 16, 2022 and November 29, 2020. FINDINGS: Breast Composition: There are scattered areas of fibroglandular density. There are no dominant masses or suspicious calcifications. No other significant abnormalities are identified. There has been no significant change since the prior study. BI/SCRN MAMM (CAD)W/MARINO BILAT IMPRESSION: Stable bilateral screening mammogram. Yearly follow-up mammogram recommended. (A) ASSESSMENT CATEGORY: BIRADS Category 1: Negative. A letter regarding these results will be sent to the patient by the facility within 30 days. Approximately 10% of breast cancers are not detected by mammography. A normal mammogram should not delay biopsy of a clinically suspicious abnormality. [id number] Electronically Signed: Sanya Headley MD at 9:54 EDT ,
== END | disposition home or self-care (01) ==
LOC: OPBI 08:06
PROVIDERS: PCP Family Medicine; Referring Provider Nurse Practitioner Women's Health; Visit Provider Nurse Practitioner Women's Health
DX: Z12.31 Encounter for screening mammogram for malignant neoplasm of breast (principal)
CPT/HCPCS: 77063; 77067

== ENCOUNTER → 2023-05-14 | Outpatient (CLI) | payer OTHER, SELFPAY ==
[2023-05-14 10:10] LABS: Absolute Lymphocyte Count 1.82 X10^3/uL (0.83-4.51); Absolute Neutrophil Count 3.4 X10^3/uL (2.0-7.7); Basophil# 0.04 X10^3/uL; Basophil% 0.7 % (0-1); Eosinophils% 3.4 % (0-5); Hematocrit 48.1 % (37-47); Hemoglobin 15.7 g/dL (12.0-15.0); Lymphocyte # 1.82 X10^3/ul (0.83-4.51); Lymphocyte % 30.7 % (19-41); Mean Corp Hgb Conc 32.6 g/dL (32-36); Mean Corpuscular Hgb 29.9 pg (27.0-32.0); Mean Corpuscular Volume 91.6 fL (81-99); Mean Platelet Vol. 10.4 fl (6.2-12.0); Monocyte% 6.7 % (0-10); NRBC Flagged by Analyzer 0 % (0-5); Neutrophil # 3.44 X10^3/uL (2.7-7.7); Platelet Count 246 K/mm3 (150-450); RBC Distribution Width CV 12.7 % (11.6-14.6); RBC Distribution Width SD 42.7 fl (35.1-43.9); Red Blood Count 5.25 M/mm3 (4.2-5.4); White Blood Count 5.9 K/mm3 (4.4-11.0)
[2023-05-14 10:28] LABS: AST(SGOT) 15 U/L (15-37); Alanine Aminotransfer ALT/SGPT 37 U/L (13-56); Albumin, Serum 3.7 g/dL (3.2-5.0); Alkaline Phosphatase 68 U/L (45-117); Anion Gap 7 (5-15); BUN 22 mg/dL (7-18); BUN/Creat Ratio 27.5 RATIO (10-20); Calcium,Total 9.2 mg/dL (8.5-10.1); Chloride 106 mmol/L (98-107); Cholesterol 202 mg/dL (200); EST Glomerular Filtration Rate 79 mL/min (>60); Est Glom Filt Rate - Afr Amer 95 mL/min (>60); Globulin 3.6 g/dL (2.2-4.2); Glucose 93 mg/dL (74-106); High Density Lipoprotein 39 mg/dL; Protein, Total 7.3 g/dL (6.4-8.2); Sodium Level 139 mmol/L (136-145); Triglycerides 137 mg/dL; Very Low Density Lipoprotein 27 mg/dL (5-40)
== END | disposition home or self-care (01) ==
PROVIDERS: PCP Family Medicine; Referring Provider Family Medicine; Visit Provider Family Medicine
DX: E78.5 Hyperlipidemia, unspecified (principal); Z51.81 Encounter for therapeutic drug level monitoring
CPT/HCPCS: 36415; 80053; 80061; 85025

== ENCOUNTER → 2024-03-24 | Outpatient (CLI) | payer OTHER, SELFPAY ==
--- NOTE | 2024-03-24 08:36 | BI_ITS ---
MAMMOGRAPHY - BILATERAL SCREENING REASON FOR EXAM: Female, 58 years old. Routine annual screening examination. PERTINENT HISTORY: Non-contributory. Remote right stereotactic breast biopsy. TECHNIQUE: Digital bilateral breast marino (3D mammographic acquisition) in the CC and MLO projections. 2-D mediolateral oblique (MLO) and craniocaudad (CC) views of both breasts were obtained. CAD: Full Field Digital Mammography with Computer Added Detection was performed. COMPARISON: Comparison is made with prior study dated March 19, 2023 and January 16, 2022. FINDINGS: Breast Composition: There are scattered areas of fibroglandular density. There are no dominant masses or suspicious calcifications. Stable small benign-appearing bilateral axillary lymph nodes. No other significant abnormalities are identified. There has been no significant change since the prior study. BI/SCRN MAMM (CAD)W/MARINO BILAT IMPRESSION: Stable bilateral screening mammogram. Yearly follow-up mammogram recommended. (A) ASSESSMENT CATEGORY: BIRADS Category 2: Benign. A letter regarding these results will be sent to the patient by the facility within 30 days. Approximately 10% of breast cancers are not detected by mammography. A normal mammogram should not delay biopsy of a clinically suspicious abnormality. [id number] Electronically Signed: Sanya Headley MD at 9:53 EDT ,
== END | disposition home or self-care (01) ==
LOC: OPBI 08:36
PROVIDERS: PCP Family Medicine; Referring Provider Nurse Practitioner Women's Health; Visit Provider Nurse Practitioner Women's Health
DX: Z12.31 Encounter for screening mammogram for malignant neoplasm of breast (principal)
CPT/HCPCS: 77063; 77067

== ENCOUNTER → 2025-03-30 | Outpatient (CLI) | payer OTHER, SELFPAY ==
--- NOTE | 2025-03-30 12:50 | BI_ITS ---
EXAM: SCRN MAMM (CAD)W/MARINO BILAT DATE: 03/30/2025 CLINICAL HISTORY: F, Age 59 y/o , SCREENING MAMMOGRAM FOR BREAST CANCER Noncontributory. Remote right stereotactic breast biopsy. TECHNIQUE: SCRN MAMM (CAD)W/MARINO BILAT COMPARISON: Prior exam(s) dated March 24, 2024.. FINDINGS: TISSUE DENSITY: The breast tissue is composed of scattered areas of fibroglandular density. Bilateral Breast Mammographic Findings: No significant masses, calcifications or other abnormalities are identified. Stable small benign-appearing bilateral axillary lymph nodes. No suspicious masses, areas of developing architectural distortion, or suspicious calcifications. There has been no significant interval change. BI/SCRN MAMM (CAD)W/MARINO BILAT IMPRESSION: Stable examination. OVERALL FINAL ASSESSMENT BI-RADS 2: BENIGN RECOMMEND ANNUAL MAMMOGRAPHIC SCREENING. RECOMMENDATION: Routine annual follow-up in 1 Year A letter with findings and recommendations will be mailed to the patient. Reading Location: [facility]
--- OUTSIDE RECORDS SUMMARY | 2025-03-30 21:56 | XMS RPT_ITS | CCD ---
Author Organization [facility] Care Team Providers Care Orthopedic Dentist Name Role Phone Kinga Valdez Primary Care Provider [phone] Dr. Bisi Diez Primary Care Provider Dr. Bisi Diez Referring Provider Aleja GRAINING OPERATOR, GRAINING OPERATOR-C Ekaterina Attending Provider Dr. Bisi Diez Primary Care Provider Dr. Bisi Diez Referring Provider [phone] Aleja GRAINING OPERATOR, GRAINING OPERATOR-C Ekaterina Attending Provider [phone] Bisi Diez Primary Care Unavailable Bisi Diez Referring Unavailable Ekaterina Mastersno Attending Unavailable HuntingtonEkaterina aguayo Attending Unavailable HuntingtonEkaterina aguayo Referring Unavailable Bisi Diez Primary Care Unavailable Dr. Bisi Diez DO Primary Care Provider Aleja GRAINING OPERATOR-CEkaterina Attending Provider Aleja GRAINING OPERATOR-CEkaterina Referring Provider Dr. Bisi Diez DO Referring Provider Allergies Allergy Classification Reported Allergen(s) Allergy Type Date of Onset Reaction(s) Facility Nitroimidazoles (antibiotic) (1 source) [facility]OLE Drug Allergy 2 [facility] Work Phone: (4 sources) metroNIDAZOLE Drug Allergy 2 [facility] (5 sources) metroNIDAZOLE; Translations: [Metronidazole HCl] Drug Allergy 2 [facility] (1 source) metroNIDAZOLE Drug Allergy 4 [facility] Repository Medications Current Medications Medication Drug Class(es) Dates Sig (Normalized) Sig (Original) ascorbic acid 500 mg oral capsule (4 sources) Vitamin C Start: 02-23-2020 Ascorbic Acid (Vitamin C) 500 mg capsule Active mg PO February 23, 2020 12:00am Start: 02-23-2020 Ascorbic Acid (Vitamin C) Active MG PO February 23, 2020 12:00am cholecalciferol 0.025 mg oral capsule (4 sources) Vitamin D Start: 02-23-2020 take 1 capsule by mouth once daily Cholecalciferol (Vitamin D3) 25 mcg (1,000 unit) capsule Active 25 ug PO DAILY February 23, 2020 12:00am Lactobacillus Combo No.11 (Probiotic) 15 billion cell capsule, sprinkle (4 sources) Start: 01-21-2018 Lactobacillus Combo No.11 (Probiotic) 15 billion cell capsule, sprinkle Active 1 NMA PO daily January 21, 2018 12:00am Start: 01-21-2018 take 1 capsule by mo [facility] once daily Lactobacillus Combo No.11 (Probiotic) 15 billion cell capsule, sprinkle Active 1 CAP PO daily January 21, 2018 12:00am levonorgestrel 0.812363 mg/hr intrauterine system (4 sources) Progestin, Progestin-containing Intrauterine Device Start: 10-08-2017 Levonorgestrel (Mirena) 20 mcg/24 hr (5 years) intrauterine device Active 1 NMA INTRA-UTER ONCE October 08, 2017 1:00am Start: 10-08-2017 Levonorgestrel (Mirena) 20 mcg/24 hr (5 years) intrauterine device Active 1 INSERT INTRA-UTER ONCE October 08, 2017 1:00am 24 hr metoprolol succinate 25 mg extended release oral tablet (20 sources) beta-Adrenergic Jac Start: 11-05-2022 End: 10-05-2024 Metoprolol Succinate 50 mg tablet extended release 24 hr Active 50 mg PO .COMPLEX October 05, 2024 9:07am 50 mg orally daily with a 25 mg tablet to = 75 mg daily; Start: 01-21-2018 End: 01-16-2022 Metoprolol Succinate 50 mg t ablet extended release 24 hr Discontinued 0 .ROUTE .COMPLEX October 01, 2021 9:53am January 16, 2022 10:54am TAKE 1 TABLET DAILY Start: 10-08-2017 End: 01-21-2018 take 1 tablet by mouth twice daily Metoprolol Succinate 50 mg tablet extended release 24 hr Discontinued 50 mg PO TWICE A DAY October 08, 2017 1:00am January 21, 2018 10:35am Start: 09-16-2013 End: 10-11-2024 Metoprolol Succinate 25 mg t ablet extended release 24 hr Active 25 mg PO .COMPLEX 90 October 11, 2024 10:38am 25 mg orally daily with a 50 mg tablet to = 75 mg daily; Start: 06-19-2006 TOPROL XL 25 M G 24 HR TAB Completed/Discontinued Medications Medication Drug Class(es) Dates Sig (Normalized) Sig (Original) acetaminophen 325 mg / HYDROcodone bitartrate 5 mg oral tablet (4 sources) Opioid Agonist Start: 09-16-2013 End: 09-24-2017 Hydrocodone-Acetami nophen 1 TABLET tablet Discontinued 1 - 2 {tbl} PO EVERY 4 HOURS NEEDED as needed for Pain September 16, 2013 1:00am September 24, 2017 11:42am Start: 09-16-2013 End: 09-24-2017 take 1 tablet by mouth every four hours as needed Hydrocodone-Acetaminophen Discontinued 1 - 2 TABLET PO EVERY 4 HOURS NEEDED September 16, 2013 1:00am September 24, 2017 11:42am azithromycin 250 mg oral tablet (8 sources) Macrolide Antimicrobial Start: 06-20-2023 End: 03-30-2025 take 2-5 tablets by mouth once daily Azithromycin 250 mg tablet Discontinued 0 PO .COMPLEX June 20, 2023 12:00am March 30, 2025 1:18pm take 500 mg today (day 1), then 250 mg for 4 days (days 2-5) PO Start: 08-30-2022 End: 02-04-2023 take 2-5 tablets by mouth once daily Azithromycin 250 mg tablet Discontinued 0 PO .COMPLEX August 30, 2022 1:00am February 04, 2023 8:01am take 500 mg today (day 1), then 250 mg for 4 days (days 2-5) PO Start: 06-01-2021 End: 01-16-2022 take 2-5 tablets by mouth once daily Azithromycin 250 mg tablet Discontinued 0 PO .COMPLEX June 01, 2021 12:00am January 16, 2022 10:54am take 500 mg today (day 1), then 250 mg for 4 days (days 2-5) PO benzonatate 100 mg oral capsule (3 sources) Non-narcotic Antitussive Start: 08-30-2022 End: 03-19-2023 take 2 capsules by mouth three times daily as needed for cough Benzonatate 100 mg capsule Discontinued 200 mg PO THREE TIMES A DAY as needed for cough August 30, 2022 1:00am March 19, 2023 8:42am Start: 08-30-2022 End: 03-19-2023 take 200 mg by mouth three times daily Benzonatate Discontinued 200 MG PO THREE TIMES A DAY August 30, 2022 1:00am March 19, 2023 8:42am cyclobenzaprine hydrochloride 10 mg oral tablet (4 sources) Muscle Relaxant Start: 09-16-2013 End: 10-08-2017 take 1 tablet by mouth three times daily as needed for muscle spasms Cyclobenzaprine 10 MG tablet Discontinued 10 mg PO THREE TIMES A DAY as needed for Muscle Spasm September 16, 2013 1:00am October 08, 2017 12:24pm Ethinyl Estradiol / Norethindrone (5 sources) Estrogen Start: 08-22-2015 End: 10-10-2016 Norethindrone Acet-Ethinyl Est (JUNE,) 1-20 mg-mcg per tablet Indications: General counseling for prescription of oral contraceptives Take active pill only for continuous cycling 4 Package 4 08/22/2015 10/10/2016 Discontinued Start: 09-16-2013 End: 09-24-2017 Norethindrone-Ethin Estradio l 1 EACH tablet Discontinued 1 NMA PO DAILY September 16, 2013 1:00am September 24, 2017 11:40am Start: 09-16-2013 End: 09-24-2017 Norethindrone-Ethin Estradio l Discontinued 1 EACH PO DAILY September 16, 2013 1:00am September 24, 2017 11:40am Comment on above: Take active pill onl y for continuous cycling 24 hr hydroCHLOROthiazide 12.5 mg / metoprolol succinate 50 mg extended release oral tablet (3 sources) Thiazide Diuretic, beta-Adrenergic Jac Start: 09-24-20 End: 10-08-19 take 1 tablet by mouth every twenty-four hours Metoprolol [place]-Hydrochlorothiaz Discontinued 1 TABLET PO Q24H September 24, 2017 1:00am October 08, 2017 12:24pm imiquimod 50 mg/ml topical cream (4 sources) Start: 02-25-20 End: 11-24-19 Imiquimod 5 % cream in packet Discontinued TOPICAL 10 04February 24, 2019 12:00am November 24, 2019 10:22am Start: 02-24-2019 End: 11-24-2019 Imiquimod Discontinued TOPIC AL 10 04February 24, 2019 12:00am November 24, 2019 10:22am Lactobacillus acidophilus (1 source) LACTOBACILLUS ACIDOPHILUS (PROBIOTIC ORAL) Take by mouth. 0 Active Comment on above: Take by mouth. Magnesium (4 sources) Start: 01-20-2018 End: 01-16-2022 take 1 tablet by mouth once daily Magnesium 250 mg tablet Discontinued 250 mg PO daily January 20, 2018 12:00am January 16, 2022 10:54am Start: 01-20-2018 End: 01-16-2022 take 250 mg by mouth once daily Magnesium Discontinued 250 MG PO daily January 20, 2018 12:00am January 16, 2022 10:54am Metoprolol Kingston-Hydrochlorothiaz 50-12.5 mg tablet extended release 24 hr (1 source) Start: 09-24-2017 End: 10-08-2017 Metoprolol [place]-Hydrochlorothiaz 50-12.5 mg tablet extended release 24 hr Discontinued 1 {tbl} PO Q24H September 24, 2017 1:00am October 08, 2017 12:24pm omeprazole 40 mg delayed release oral capsule (5 sources) Proton Pump Inhibitor Start: 09-16-2013 End: 09-24-2017 take 1 capsule by mouth once daily Omeprazole 40 MG capsule Discontinued 40 mg PO DAILY September 16, 2013 1:00am September 24, 2017 11:41am Comment on above: Take 40 mg by mouth once daily. simvastatin 20 mg oral tablet (5 sources) HMG-CoA Reductase Inhibitor Start: 09-16-2013 End: 01-16-2022 take 1 tablet by mouth at bedtime Simvastatin 20 MG tablet Discontinued 20 mg PO AT BEDTIME September 16, 2013 1:00am January 16, 2022 10:55am Comment on above: Take 20 mg by mouth daily at bedtime. Problems Problem Classification Problem Date Documented Date Episodic/Chronic Acute bronchitis (1 source) Acute bronchitis; Translations: [Acute bronchitis, unspecified] 08-30-2022 Episodic Cardiac dysrhythmias (4 sources) Supraventricular arrhythmia; Translations: [Cardiac arrhythmia, unspecified] 02-28-2021 Chronic Contraceptive and procreative management (4 sources) Oral contraception; Translations: [Encounter for surveillance of contraceptive pills] 02-23-2019 Episodic Disorders of lipid metabolism (5 sources) Hypercholesterolemia; Translations: [Pure hypercholesterolemia, unspecified] Onset: 08-03-2012 08-03-2012 Chronic Esophageal disorders (1 source) Gastroesophageal reflux disease; Translations: [Gastro-esophageal reflux disease without esophagitis] Onset: 08-03-2012 08-03-2012 Chronic Heart valve disorders (5 sources) Mitral valve prolapse; Translations: [Nonrheumatic mitral (valve) prolapse] Onset: 08-03-2012 08-03-2012 Chronic Menopausal disorders (5 sources) Atrophic vaginitis; Translations: [Postmenopausal atrophic vaginitis] 02-04-2023 Chronic Comment on above: not problematic Menstrual disorders (5 sources) Menorrhagia; Translations: [Excessive and frequent menstruation with regular cycle] Chronic Comment on above: mirena 10/2017 Other female genital disorders (3 sources) Lesion of vulva; Translations: [Other specified noninflammatory disorders of vulva and perineum] 02-04-2023 Episodic Other female genital disorders (2 sources) Other specified noninflammatory disorders of vulva and perineum; Translations: [Other specified noninflammatory disorders of vulva and perineum] 02-04-2023 Episodic Other female genital disorders (2 sources) Other specified noninflammatory disorders of vagina; Translations: [Other specified symptoms associated with female genital organs] 02-04-2023 Episodic Other screening for suspected conditions (not mental disorders or infectious disease) (1 source) Encounter for screening mammogram for malignant neoplasm of breast; Translations: [Encounter for screening mammogram for malignant neoplasm of breast] Onset: 03-28-2025 Episodic Urinary tract infections (4 sources) Acute pyelonephritis; Translations: [Acute pyelonephritis] 02-23-2019 Episodic Results Test Name Value Interpretation Reference Range Facil ity Herpes simplex virus (HSV) c ulture with typingOrdered By: Ekaterina Masterson on 02-07-2023 HSV identified Org specific cx Nom (Unsp spec) [facility] Absolute lymphocyte counton 05-13-2022 Lymphocytes Auto (Unsp spec) [#/Vol] 1.98 10*3/uL 0.83-4.51 [facility] Work Phone: Basophil percentageon 2021 Basophils/100 WBC (Bld) 0.6 % 0-1 [facility] Work Phone: Bilirubin [Mass/Vol] 0.50 mg/dL 0.20-1.00 [facility] Work Phone: Comment on above: For patients on eltr ombopag therapy, use of Dimension [place] TBIL is not recommended. Chloride [Moles/Vol] 108 mmol/L 98-107 [facility] Work Phone: Cholesterol [Mass/Vol] 200 mg/dL <200 [facility] Work Phone: Comment on above: <200 mg/dL Desirable 200-240 mg/dL Borderline >240 mg/dL High Risk Eosinophils/100 WBC (Bld) 3.6 % 0-5 [facility] Work Phone: Glucose [Mass/Vol] 89 mg/dL 74-106 [facility] Work Phone: Neutrophils (Bld) [#/Vol] 3.5 10*3/uL 2.0-7.7 [facility] Work Phone: Neutrophils/100 WBC (Bld) 56.3 % 47-70 [facility] Work Phone: Potassium [Moles/Vol] 3.8 mmol/L 3.5-5.1 [facility] Work Phone: Protein [Mass/Vol] 6.9 g/dL 6.4-8.2 [facility] Work Phone: Sodium [Moles/Vol] 140 mmol/L 136-145 [facility] Work Phone: Triglyceride [Mass/Vol] 101 mg/dL <199 [facility] Work Phone: Comment on above: The drugs N-Acetylcy steine and Metamizole may falsely depress this assay.Serum Triglycerides Reference Interval Normal <150 mg/dL Borderline high 150 - 199 mg/dL High 200 - 499 mg/dL Very High > or = 500 mg/dL WBC (Bld) [#/Vol] 6.2 10*3/uL 4.4-11.0 [facility] Work Phone: Blood erythrocytes count (nu mber/volume)on 05-13-2022 RBC (Bld) [#/Vol] 5.02 10*6/uL 4.2-5.4 [facility] Work Phone: Blood hemoglobin measurement (mass/volume)on 05-13-2022 Hemoglobin (Bld) [Mass/Vol] 15.2 g/dL 12.0-15.0 [facility] Work Phone: Blood lymphocytes/100 leukoc yteson 05-13-2022 Lymphocytes/100 WBC (Bld) 32.1 % 19-41 [facility] Work Phone: Blood monocytes/100 leukocyt eson 05-13-2022 Monocytes/100 WBC (Bld) 7.1 % 0-10 [facility] Work Phone: Blood platelet mean volumeon 05-13-2022 Platelet mean volume (Bld) [Entitic vol] 9.9 fL 6.2-12.0 [facility] Work Phone: Determination of erythrocyte mean corpuscular volume (MCV)on 05-13-2022 MCV (RBC) [Entitic vol] 89.6 fL 81-99 [facility] Work Phone: Hematocrit Auto (Bld) [Volum e fraction]on 05-13-2022 Hematocrit (Bld) [Volume fraction] 45.0 % 37-47 [facility] Work Phone: Laboratory - Chemistry and C hemistry - challengeon 05-13-2022 ALP [Catalytic activity/Vol] 62 U/L 45-117 [facility] Work Phone: ALT [Catalytic activity/Vol] 22 U/L 13-56 [facility] Work Phone: CO2 [Moles/Vol] 26.0 mmol/L 21.0-32.0 [facility] Work Phone: Globulin (S) [Mass/Vol] 3.3 g/dL 2.2-4.2 [facility] Work Phone: Urea nitrogen/Creatinine [Mass ratio] 31.0 mg/mg 10-20 [facility] Work Phone: Laboratory - Hematology and Cell countson 05-13-2022 Erythrocyte distribution width (RBC) [Entitic vol] 42.6 fL 35.1-43.9 [facility] Work Phone: Erythrocyte distribution width (RBC) [Ratio] 13.0 % 11.6-14.6 [facility] Work Phone: Immature granulocytes/100 WBC (Bld) 0.300 % 0.0-0.9 [facility] Work Phone: Comment on above: IG% - Immature Granu locytes (promyelocytes, myelocytes and metamyelocytes) > 1% indicates that a LEFT SHIFT is Present. MCH (RBC) [Entitic mass] 30.3 pg 27.0-32.0 [facility] Work Phone: Nucleated RBC/100 WBC (Bld) [Ratio] 0 % 0-5 [facility] Work Phone: MCHC Auto (RBC) [Mass/Vol]on 05-13-2022 MCHC (RBC) [Mass/Vol] 33.8 g/dL 32-36 [facility] Work Phone: No Panel Informationon 05-13 Estimated GFR (MDRD) Amer 95 mL/min >60 [facility] Work Phone: Comment on above: GFR Calc Estimated GFR (MDRD) Non-Af Amer 78 mL/min >60 [facility] Work Phone: Comment on above: Non- GFR Calc Platelets bldon 05-13-2022 Platelets (Bld) [#/Vol] 264 10*3/uL 150-450 [facility] Work Phone: Serum or plasma albumin nubia urement (mass/volume)on 05-13-2022 Albumin [Mass/Vol] 3.6 g/dL 3.2-5.0 [facility] Work Phone: Serum or plasma albumin/glob ulin mass ratioon 05-13-2022 Albumin/Globulin [Mass ratio] 1.1 {ratio} 0.9-2.4 [facility] Work Phone: Serum or plasma calcium nubia urement (mass/volume)on 05-13-2022 Calcium [Mass/Vol] 9.1 mg/dL 8.5-10.1 [facility] Work Phone: Serum or plasma cholesterol in HDL measurement (mass/volume)on 05-13-2022 Cholesterol in HDL [Mass/Vol] 41 mg/dL >40 [facility] Work Phone: Comment on above: The drugs N-Acetylcy steine and Metamizole may falsely depress this assay. Reference Range HDL <40 mg/dL Low HDL Cholesterol HDL >or= 60 mg/dL High HDL Cholesterol Serum or plasma cholesterol in VLDL measurement (mass/volume)on 05-13-2022 Cholesterol in VLDL [Mass/Vol] 20 mg/dL 5-40 [facility] Work Phone: Serum or plasma creatinine m easurement (mass/volume)on 05-13-2022 Creatinine [Mass/Vol] 0.81 mg/dL 0.55-1.02 [facility] Work Phone: Comment on above: The validity of the calculated GFR & GFRAA in patients over 70 years has not been determined. Clinical correlation is essential. Serum or plasma low density lipoprotein (LDL) cholesterol measurement (mass/volume)on 05-13-2022 Cholesterol in LDL [Mass/Vol] 139 mg/dL 0-130 [facility] Work Phone: Serum or plasma urea nitroge n measurement (mass/volume)on 05-13-2022 Urea nitrogen [Mass/Vol] 25 mg/dL 7-18 [facility] Work Phone: Thin prep Papanicolaou smear with manual screeningon 05-13-2022 Thin prep Papanicolaou smear with manual screening 15 U/L 15-37 [facility] Work Phone: Thin prep Papanicolaou smear with manual screening 6 5-15 [facility] Work Phone: Vital Signs Date Time Vital Sign Value Performing Clinician Sylvie mack 03-30-2025 13:18-0400 Body height 170.[address] Bisi Diez DO Work Phone: [facility] 03-30-2025 13:15-0400 Body mass index (BMI) [Ratio] 31.3 kg/m2 Dr. Bisi Diez DO Work Phone: [facility] 03-30-2025 13:15-0400 Body weight 90.[address] Bisi Diez DO Work Phone: [facility] 03-30-2025 13:15-0400 Diastolic blood pressure 82 mm[Hg] Dr. Bisi Diez DO Work Phone: [facility] 03-30-2025 13:15-0400 Systolic blood pressure 128 mm[Hg] Dr. Bisi Diez DO Work Phone: [facility] 03-19-2023 08:44-0400 Body height 170.[address] Bisi Diez Work Phone: [facility] 03-19-2023 08:44-0400 Diastolic blood pressure 76 mm[Hg] Dr. Bisi Diez Work Phone: [facility] 03-19-2023 08:44-0400 Systolic blood pressure 128 mm[Hg] Dr. Bisi Diez Work Phone: [facility] 03-19-2023 08:39-0400 Body mass index (BMI) [Ratio] 30.7 kg/m2 Dr. Bisi Diez Work Phone: [facility] 03-19-2023 08:39-0400 Body weight 88.[address] Bisi Diez Work Phone: [facility] 02-04-2023 08:09-0400 Body height 170.[address] Bisi Diez Work Phone: [facility] 02-04-2023 08:01-0400 Body mass index (BMI) [Ratio] 30.5 kg/m2 Dr. Bisi Diez Work Phone: [facility] 02-04-2023 08:01-0400 Body weight 88.[address] Bisi Diez Work Phone: [facility] 02-04-2023 08:01-0400 Diastolic blood pressure 82 mm[Hg] Dr. Bisi Diez Work Phone: [facility] 02-04-2023 08:01-0400 Systolic blood pressure 136 mm[Hg] Dr. Bisi Diez Work Phone: [facility] 01-16-2022 10:55-0400 Body height 170.[address] Bisi Diez Work Phone: [facility] Work Phone: 01-16-2022 10:55-0400 Body mass index (BMI) [Ratio] 28.3 kg/m2 Dr. Bisi Diez Work Phone: [facility] Work Phone: 01-16-2022 10:55-0400 Body weight 82.[address] Bisi Diez Work Phone: [facility] Work Phone: 01-16-2022 10:55-0400 Diastolic blood pressure 76 mm[Hg] Dr. Bisi Diez Work Phone: [facility] Work Phone: 01-16-2022 10:55-0400 Systolic blood pressure 118 mm[Hg] Dr. Bisi Diez Work Phone: [facility] Work Phone: Encounters Encounter Date Encounter Type Care Provider Facility Start: 03-30-2025 End: 03-30-2025 Patient encounter status Ekaterina Krishnamurthytings GRAINING OPERATOR-C [facility] Start: 03-30-2025 End: 03-30-2025 ambulatory Bisi Diez Facility:[facility] Start: 03-30-2025 End: 03-30-2025 Patient encounter procedure Ekaterina Nances GRAINING OPERATOR-C -[facility] Work Phone: Start: 03-19-2023 End: 03-19-[address] Bisi Diez Work Phone: [facility] Work Phone: Start: 03-19-2023 End: 03-19-[address] Bisi Diez Work Phone: [facility] Start: 02-04-2023 End: 02-04-[address] Bisi Diez Work Phone: [facility] Work Phone: Start: 02-04-2023 End: 02-04-[address] [facility] Start: 02-04-2023 End: 02-04-[address] Bisi Diez Work Phone: [facility] Start: 05-13-2022 End: 05-13-[address] Bisi Diez Work Phone: [facility]-Laboratory, [place] Start: 01-16-2022 End: 01-16-[address] Bisi Diez Work Phone: [facility]-Outpatient Breast Imaging Start: 10-04-2016 End: 10-04-2016 Refill Ekaterina Aleja Work Phone: OB/Gynecology Comment on above: Refill Request Procedures Date Procedure Procedure Detail Performing Clinician Start: 03-19-2023 Screening mammography D julian Diez Work Phone: Start: 01-16-2022 Screening mammography D julian Diez Work Phone: Start: 09-19-2016 Colonoscopy Ekaterina Hast ings Work Phone: Start: 09-19-2016 Mammography Ekaterina Hast ings Work Phone: Herpes simplex virus culture Dr. Bisi Diez Work Phone: Plan of Treatment Date Care Activity Detail Author Start: 03-30-2025 Screening mammography ARDEN UMAÑA M (CAD)W/MARINO [facility] Start: 06-06-2021 Influenza vaccination INFLUENZ A (Season Ended) [facility] Start: 09-19-2017 Mammography MAMMOGRAM [facility] Start: 09-19-2017 Screening for malign ant neoplasm of colon [facility] Start: 08-03-2017 HPV TESTING HPV TESTING [facility] Start: 08-03-2017 LIPID SCREEN LIPID SCREEN [facility] Start: 08-03-2017 PAP TESTING PAP TESTING [facility] Start: 2016 Screening for malign ant neoplasm of colon [facility] Start: 2016 SHINGRIX VACCINE (1 of 2) BERMEO GRIX VACCINE (1 of 2) [facility] Start: 08-03-2015 DIABETES SCREEN DIABETES SCREEN [facility] Start: 1985 Urine microalbumin profile DTAP,TDAP,TD (1 - Tdap) [facility] Start: 1984 HEPATITIS C SCREENING HEPATITIS C SC REENING [facility] Start: 1984 HIV SCREENING HIV SCREENING [facility] Start: 1978 Adult depression screening assessment DEPRESSION SCREENING [facility] Immunizations Immunization Date Immunization Notes Care Provider Lore del rosario 07-21-2014 influenza, seasonal, injectable Ekaterina Aleja Work Phone: [facility] 08-21-2013 influenza virus vacc ine, unspecified formulation Ekaterina Huntington Work Phone: [facility] 08-15-2012 influenza virus vacc ine, unspecified formulation Ekaterina Huntington Work Phone: [facility] 07-13-2011 influenza virus vacc ine, unspecified formulation Ekaterina Masterson Work Phone: [facility] 07-21-2010 influenza virus vacc ine, unspecified formulation Ekaterina Masterson Work Phone: [facility] Payers Date Payer Category Payer Self-pay [id number] 2024 Unknown [id number] 2014 Unknown MMO MMO [employer] [id number] 2014-Present PPO [id number] Unknown [id number] Unknown [id number] Social History Date Type Detail Facility Start: 09-19-2016 End: 06-20-2023 Tobacco smoking status NHIS Never smoker [facility] Start: 09-19-2016 Tobacco use and exposure Never used [facility] Start: 09-19-2016 Alcohol intake Current drinke r of alcohol (finding) [facility] Start: 09-08-2007 Alcohol Comment rare/social [facility] Start: 1965 Sex Assigned At Not on file [facility] Start: 01-16-2022 End: 03-19-2023 Tobacco smoking status ILIS Unknown if ever smoked [facility] Start: 03-14-2021 Rare [facility] [facility] Start: 03-14-2021 None [facility] Start: 03-14-2021 Homeless [facility] Start: 03-14-2021 Non-smoker [facility] Start: 1965 Sex Assigned At Female [facility] Progress note 03-30-2025 Note Date & Type Note Facility 03-30-2025 Progress note [facility] Note 10-08-2016 Telephone Encounter - Ekaterina Masterson CNP - 10/08/2016 1:17 PM ESTTelephone Encounter - Ana Luisa Posadas LPN - 10/08/2016 12:12 PM EST Note Date & Type Note Facility 10-08-2016 Miscellaneous Notes Patient states does not need refills at this time. Ekaterina Masterson CNP Pt does not need this refill at this time. Ana Luisa Posadas LPN Left message to call office Please advise. Last office noted stated that patient was to have a FSH lab drawn after being hormone free for 7 days. Please call patient and remind of need for lab and see if she does need refills until lab is done. Ekaterina Masterson CNP Please advise if refill is indicated. Last office note states that patient needs to be hormone free X 7 days & have FSH drawn. Please advise. documented in this encounter [facility] Evaluation note Note Date & Type Note Facility Evaluation note Diagnosis Onset Date Menorrhagia chronic Encounter for routine gyneco logical examination noneactive [facility] Work Phone: Evaluation note Note Date & Type Note Facility Evaluation note Diagnosis Onset Date Atrophic vaginitis acute Vulval lesion acute Vaginal odor noneactive [facility] Work Phone: Evaluation note Note Date & Type Note Facility Evaluation note Diagnosis Onset Date Atrophic vaginitis acute Vulval lesion resolved Vaginal odor noneactive Encounter for routine gyneco logical examination noneactive [facility] Work Phone: Evaluation note Note Date & Type Note Facility Evaluation note Diagnosis Onset Date Resolution Encounter for routine gynecological examination noneactive March 30, 2025 1:11pm [facility] Work Phone: Progress note Note Date & Type Note Facility Progress note Note Date/Time March 30, 2025 1:34pm [facility] [address], [address] [place] [address] OFFICE VISIT Date of Service: 03/30/25 MR#: [id number] Acct: [id number] Name: BISI MENDEZ Rep #: [id number] : 1965 Provider: OFELIA aMsterson Age/Sex: 59/F Location: [facility] Status: Signed Intake Vital Signs 03/24/24 09:20 03/30/25 13:15 03/30/25 13:18 Height 5 ft 7 in 5 ft 7 in 5 ft 7 in Weight: 200 lb BMI 31.3 BP 128/82 H Intake 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) Chief Complaint: Annual Director Of Cardiopulmonary Services Required: No Is patient in pain?: No Allergies metronidazole (From Flagyl) Allergy (Verified 03/30/25 13:25) Rash Metronidazole HCl (From Flagyl) Allergy (Verified 03/30/25 13:25) Rash Medications ?Medication ?Instructions ?Recorded ?Confirmed ?Type levonorgestrel (Mirena) 1 insert intrauterine ONCE # 1 ea 10/08/17 03/30/25 Rx lactobacillus combo no.11 15 1 cap PO QDAY 01/21/18 History billion cell sprinkle capsule (Probiotic) ascorbic acid (vitamin C) 500 mg mg PO 02/23/20 History capsule cholecalciferol (vitamin D3) 25 25 mcg PO DAILY 03/30/25 History mcg (1,000 unit) capsule metoprolol succinate 50 mg 50 mg PO .COMPLEX #90 tabs 10/05/24 03/30/25 Rx tablet,extended release 24 hr metoprolol succinate 25 mg 25 mg PO .COMPLEX #90 tabs 10/11/24 03/30/25 Rx tablet,extended release 24 hr Is last menstrual period known: No Post menopausal: Yes Patient : No : No PFSH Medical History Obesity Basal cell carcinoma (BCC) in situ of skin GERD (gastroesophageal reflux disease) Nonrheumatic mitral (valve) prolapse Hyperlipidemia Menorrhagia Surgical History H/O basal cell carcinoma excision (01/2019) History of appendectomy H/O right breast biopsy Family History Mother CVA (cerebral vascular accident) Hypertension Hyperlipidemia Brain aneurysm Father Hyperlipidemia Hypertension Brother Hyperlipidemia Hypertension Grandmother Alzheimer disease Grandfather Alzheimer disease Heart disease Social History Smoking Status: Never smoker alcohol intake: current alcohol intake frequency: holidays/special occasions only substance use type: does not use caffeine: No what type of physical activity do you participate in: walking and weight training frequency: 1-2 times per week seatbelt use: always do you feel safe at home: Yes additional social history: [employer] Patient works at [employer] History 2 Elective abortions Hx Para 2 Spontaneous abortions Hx # Term Pregnancies Ectopic pregnancies Hx # Pregnancies Multiple births # of living children Past Pregnancies Del. Date Name GA/Weeks Outcome Route Bth Weight Infant Gen Labor Lgth Anesthesia Del Locatn Provider FOB Unknown 1992 [place] [facility] Encounter for routine gynecological examination Details: BISI MENDEZ is a 59 year old who presents for annual exam. Denies concerns Last PAP: 2020 History of abnormal PAP: no Last mammogram: today, pending History of abnormal mammogram: no Colon cancer screening: cologuard 2024 Other preventative health care screenings: Malys Female Reproductive History Questions: metorrhagia: No, sexually active: Yes, dyspareunia: No and PCB: No ROS Const Constitutional: Denies fatigue, weight gain or weight loss Cardio Card: Denies chest pain Resp Resp: Denies cough or dyspnea on exertion GI GI: Denies abdominal pain, bloating, change in stool character, constipation or vomiting : Reports as per HPI; Denies difficulty voiding, pelvic pain, urinary frequency, urinary incontinence,urinary urgency, vaginal discharge or vaginal pruritus Exam Const General: cooperative, healthy appearing, no acute distress and well developed Orientation: alert, oriented to person and oriented to place [facility] Head: normal to inspection Neck Neck: normal visual inspection Thyroid: thyroid normal Lymphatic: no lymphadenopathy noted Chest Breast inspection: normal inspection of the breasts and normal inspection of theaxillae Breast palpation: normal palpation of the breasts, normal palpation of the axillae and no axillary lymphadenopathy Resp Effort & Inspection: normal respiratory effort GI Palpation: soft, no masses and nontender Rectal Exam: deferred External Female Exam: normal external appearance and normal appearance of the urethra Urethra: normal appearance of the urethra and normal palpation Speculum Exam - Vagina: normal appearance of the vagina and normal vaginal discharge Speculum Exam - Cervix: normal appearance of the cervix Bimanual Exam- Vagina & Uterus: normal bimanual exam, uterine size normal, uterine shape normal and non-tender Bimanual Exam- Adnexa, other: normal adnexae, no masses, normal and non-tender Pelvic Support: normal Neuro General: patient alert and patient oriented x3 Psych Affect: normal affect Coding Level of Care Code Off vis,est,prev 40-64yrs Diagnoses Encounter for gynecological examination without abnormal finding Z01.419 Gynecological examination findings: abnormal findings ABSENT Assessment and Plan Assessment and Plan (1) Encounter for routine gynecological examination: Qualifiers: Gynecological examination findings: abnormal findings ABSENT Qualified Code(s): Z01.419 - Encounter for gynecological examination (general) (routine) without abnormal findings Plan Completed breast and pelvic exam Reviewed diet and exercise Pap 2020 Mammogram today pending breast self exam encouraged monthly Contraception mirena IUD needs removed 2025 Colonoscopy cologuard 2024 Bone density age 66 RTO 1 year, prn with problems Ekaterina Masterson DUDE WRANGLER 03/30/25 [id number] <Electronically signed by Ekaterina porter GRAINING OPERATOR GRAINING OPERATOR-C> Date _ Ekaterina Masterson GRAINING OPERATOR GRAINING OPERATOR-C Cosigner Signature: Date (if applicable) CC: ~ [facility] Work Phone: Reason for referral (narrative) Note Date & Type Note Facility Reason for referral (narrative) No reason for referral information available [facility] Work Phone: Chief Complaint and Reason for Visit Chief Complaint 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 Visit Menorrhagia Encounter for routine gynecological examination Chief Complaint PAINFUL VAGINAL BUMP Other specified noninflammatory disorders of vagin Reason for Visit Atrophic vaginitis Vulval lesion Vaginal odor Chief Complaint PAINFUL VAGINAL BUMP Other specified noninflammatory disorders of vagin 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 Visit Atrophic vaginitis Vulval lesion Vaginal odor Encounter for routine gynecological examination Chief Complaint Admit Date SCREENING March 30, 2025 12:3 7pm 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) March 30, 2025 1:11 pm Reason for Visit Admit Date Encounter for routine gynecological exam ination March 30, 2025 1:11pm Family History Relationship Condition Age at Onset Recorded Date/T bailee mother Cerebrovascular accident (CVA) Unknown Hypertension Unknown Hyperlipidemia Unknown Cerebral aneurysm Unknown father Hyperlipidemia Unknown brother Hyperlipidemia Unknown grandmother Alzheimer's disease Unknown grandfather Alzheimer's disease Unknown Cardiac disease Unknown Summary Purpose Advance Directives No Advanced Directives Records Found Additional Source Comments Source Comments (unrecognize d section and content) In the event this informatio n is protected by the Federal Confidentiality of Alcohol and Drug Abuse Patient Records regulations: The Federal rules restrict any use of the information to criminally investigate or prosecute any alcohol or drug abuse patient.[facility] Reason for Visit (unrecogniz ed section and content) Reason Comments Refill Request Goals (unrecognized section and content) Goals may be documented in a n alternate sectionGoals may be documented in an alternate sectionGoals may be documented in an alternate sectionGoals may be documented in an alternate section Care Teams (unrecognized sec tion and content) Team Status: Active Member Role Status Dates Dr. Bisi Diez DO Family Provider Active Dr. Bisi Diez DO Primary Care Provider Active Team Status: Inactive Member Role Status Dates Dr. Bisi Diez DO Primary Care Provider, Referring P rovider Active Ekaterina Msaterson GRAINING OPERATOR, GRAINING OPERATOR-C Attending Provider Active Team Status: Inactive Member Role Status Dates Dr. Bisi Diez DO Primary Care Provider Active Ekaterina Masterson GRAINING OPERATOR, GRAINING OPERATOR-C Attending Provider, Referring Provider Active Team Status: Active Member Role Status Dates Dr. Bisi Diez DO Primary Care Provider Active Team Status: Active Member Role Status Dates Dr. Bisi Diez DO Primary Care Provider Active Start: March 30, 2025 Ekaterina Masterson GRAINING OPERATOR, GRAINING OPERATOR-C Attending Provider Active Start: March 30, 2025 Ekaterina Masterson GRAINING OPERATOR, GRAINING OPERATOR-C Referring Provider Active Start: March 30, 2025 Team Status: Inactive Member Role Status Dates Dr. Bisi Diez DO Primary Care Provider Active Start: March 30, 2025 End: March 30, 2025 Dr. Bisi Diez DO Referring Provider Active St art: March 30, 2025 End: March 30, 2025 Ekaterina Masterson GRAINING OPERATOR, GRAINING OPERATOR-C Attending Provider Active Start: March 30, 2025 End: March 30, 2025 INFORMATION SOURCE (unrecogn ized section and content) DATE CREATED AUTHOR 03/29/2025 [facility] FOR RECORDS PERTAINING TO PATIENTS WHO ARE OR HAVE BEEN ENROLLED IN A CHEMICAL DEPENDENCY/SUBSTANCEABUSE PROGRAM, SOME INFORMATION MAY BE OMITTED. This clinical summary was aggregated from multiple sources. Caution should be exercised in using it in the provision of clinical care. This summary normalizes information from multiple sources, and as a consequence, information in this document may materially change the coding, format and clinical context of patient data. In addition, data may be omitted in some cases. CLINICAL DECISIONS SHOULD BE BASED ON THE PRIMARY CLINICAL RECORDS. [employer] provides no warranty or guarantee of the accuracy or completeness of information in this document.
== END | disposition home or self-care (01) ==
LOC: OPBI 12:38
PROVIDERS: PCP Family Medicine; Referring Provider Nurse Practitioner Women's Health; Visit Provider Nurse Practitioner Women's Health
DX: Z12.31 Encounter for screening mammogram for malignant neoplasm of breast (principal)
CPT/HCPCS: 77063; 77067

== ENCOUNTER → 2025-04-21 | Outpatient (CLI) | payer OTHER, SELFPAY ==
--- OUTSIDE RECORDS SUMMARY | 2025-04-21 07:41 | XMS RPT_ITS | CCD ---
Author Organization [facility] Care Team Providers Care Shopping Centre Manager Name Role Phone Kinga Valdez Primary Care Provider [phone] Dr. Bisi Diez Primary Care Provider [phone] Dr. Bisi Diez Referring Provider Aleja LABOR ECONOMICS PROFESSOR, LABOR ECONOMICS PROFESSOR-C Ekaterina Attending Provider Dr. Bisi Diez Primary Care Provider [phone] Dr. Bisi Diez Referring Provider Aleja LABOR ECONOMICS PROFESSOR, LABOR ECONOMICS PROFESSOR-C Ekaterina Attending Provider [phone] Dr. Bisi Diez DO Primary Care Provider [phone] Aleja LABOR ECONOMICS PROFESSOR-CEkaterina Attending Provider [phone] Aleja WELCH-CEkaterina Referring Provider Dr. Bisi Diez DO Referring Provider [phone] Bisi Diez Referring Unavailable Bisi Diez Primary Care Unavailable Aleja LABOR ECONOMICS PROFESSOREkaterina Attending Unavailable Ekaterina Masterson NP Attending Unavailable Bisi Diez Primary Care Unavailable Aleja LABOR ECONOMICS PROFESSOREkaterina Referring Unavailable Allergies Allergy Classification Reported Allergen(s) Allergy Type Date of Onset Reaction(s) Facility Nitroimidazoles (antibiotic) (1 source) metroNIDAZOLE Drug Allergy 2 [facility] Work Phone: (5 sources) metroNIDAZOLE Drug Allergy 2 [facility] (6 sources) metroNIDAZOLE; Translations: [Metronidazole HCl] Drug Allergy 2 [facility] (1 source) metroNIDAZOLE Drug Allergy 5 [facility] Repository Medications Current Medications Medication Drug Class(es) Dates Sig (Normalized) Sig (Original) ascorbic acid 500 mg oral capsule (5 sources) Vitamin C Start: 02-23-2020 Ascorbic Acid (Vitamin C) 500 mg capsule Active mg PO February 23, 2020 12:00am Start: 02-23-2020 Ascorbic Acid (Vitamin C) Active MG PO February 23, 2020 12:00am cholecalciferol 0.025 mg oral capsule (5 sources) Vitamin D Start: 02-23-2020 take 1 capsule by mouth once daily Cholecalciferol (Vitamin D3) 25 mcg (1,000 unit) capsule Active 25 ug PO DAILY February 23, 2020 12:00am Lactobacillus Combo No.11 (Probiotic) 15 billion cell capsule, sprinkle (5 sources) Start: 01-21-2018 Lactobacillus Combo No.11 (Probiotic) 15 billion cell capsule, sprinkle Active 1 NMA PO daily January 21, 2018 12:00am Start: 01-21-2018 take 1 capsule by mo ut once daily Lactobacillus Combo No.11 (Probiotic) 15 billion cell capsule, sprinkle Active 1 CAP PO daily January 21, 2018 12:00am levonorgestrel 0.534016 mg/hr intrauterine system (5 sources) Progestin, Progestin-containing Intrauterine Device Start: 10-08-2017 Levonorgestrel (Mirena) 20 mcg/24 hr (5 years) intrauterine device Active 1 NMA INTRA-UTER ONCE 1 October 08, 2017 1:00am Start: 10-08-2017 Levonorgestrel (Mirena) 20 mcg/24 hr (5 years) intrauterine device Active 1 INSERT INTRA-UTER ONCE October 08, 2017 1:00am Completed/Discontinued Medications Medication Drug Class(es) Dates Sig (Normalized) Sig (Original) acetaminophen 325 mg / HYDROcodone bitartrate 5 mg oral tablet (5 sources) Opioid Agonist Start: 09-16-2013 End: 09-24-2017 [...] 2017 11:42am azithromycin 250 mg oral tablet (11 sources) Macrolide Antimicrobial Start: 06-20-2023 End: 03-30-2025 take 2-5 tablets by mouth once daily Azithromycin 250 mg tablet Discontinued 0 PO .COMPLEX 6 0 June 20, 2023 12:00am March 30, 2025 1:18pm take 500 mg today (day 1), then 250 mg for 4 days (days 2-5) PO Start: 08-30-2022 End: 02-04-2023 take 2-5 tablets by mouth once daily Azithromycin 250 mg tablet Discontinued 0 PO .COMPLEX 6 0 August 30, 2022 1:00am February 04, 2023 8:01am take 500 mg today (day 1), then 250 mg for 4 days (days 2-5) PO Start: 06-01-2021 End: 01-16-2022 take 2-5 tablets by mouth once daily Azithromycin 250 mg tablet Discontinued 0 PO .COMPLEX 6 0 June 01, 2021 12:00am January 16, 2022 10:54am take 500 mg today (day 1), then 250 mg for 4 days (days 2-5) PO benzonatate 100 mg oral capsule (4 sources) Non-narcotic Antitussive Start: 08-30-2022 End: 03-19-2023 take 2 capsules by mouth three times daily as needed for cough Benzonatate 100 mg capsule Discontinued 200 mg PO THREE TIMES A DAY as needed for cough 30 August 30, 2022 1:00am March 19, 2023 8:42am Start: 08-30-2022 End: 03-19-2023 take 200 mg by mouth three times daily Benzonatate Discontinued 200 MG PO THREE TIMES A DAY August 30, 2022 1:00am March 19, 2023 8:42am cyclobenzaprine hydrochloride 10 mg oral tablet (5 sources) Muscle Relaxant Start: 09-16-2013 End: 10-08-2017 take 1 tablet by mouth three times daily as needed for muscle spasms Cyclobenzaprine 10 MG tablet Discontinued 10 mg PO THREE TIMES A DAY as needed for Muscle Spasm September 16, 2013 1:00am October 08, 2017 12:24pm Ethinyl Estradiol / Norethindrone (6 sources) Estrogen Start: 08-22-2015 End: 10-10-2016 Norethindrone Acet-Ethinyl Est (JUNEL ,) 1-20 mg-mcg per tablet Indications: General counseling [...] 2017 12:24pm imiquimod 50 mg/ml topical cream (5 sources) Start: 02-25-20 End: 11-24-19 Imiquimod 5 % cream in packet Discontinued TOPICAL February 24, 2019 12:00am November 24, 2019 10:22am Start: 02-24-2019 End: 11-24-2019 Imiquimod Discontinued TOPIC AL 10 04February 24, 2019 12:00am November 24, 2019 10:22am Lactobacillus acidophilus (1 source) LACTOBACILLUS ACIDOPHILUS (PROBIOTIC ORAL) Take by mouth. 0 Active Comment on above: Take by mouth. Magnesium (5 sources) Start: 01-20-2018 End: 01-16-2022 take 1 tablet by mouth once daily Magnesium 250 mg tablet Discontinued 250 mg PO daily January 20, 2018 12:00am January 16, 2022 10:54am Start: 01-20-2018 End: 01-16-2022 take 250 mg by mouth once daily Magnesium Discontinued 250 MG PO daily January 20, 2018 12:00am January 16, 2022 10:54am 24 hr metoprolol succinate 50 mg extended release oral tablet (20 sources) beta-Adrenergic Jac Start: 11-05-2022 End: 10-05-2024 Metoprolol Succinate 50 mg tablet extended release 24 hr Discontinued 50 mg PO .COMPLEX 90 3 October 20, 2023 10:00am October 05, 2024 9:08am 50 mg orally daily with a 25 mg tablet to = 75 mg daily; Start: 01-21-2018 End: 01-16-2022 Metoprolol Succinate 50 mg t ablet extended release 24 hr Discontinued 0 .ROUTE .COMPLEX 90 4 October 01, 2021 9:53am January 16, 2022 10:54am TAKE 1 TABLET DAILY Start: 10-08-2017 End: 01-21-2018 take 1 tablet by mouth twice daily Metoprolol Succinate 50 mg tablet extended release 24 hr Discontinued 50 mg PO TWICE A DAY October 08, 2017 1:00am January 21, 2018 10:35am Start: 09-16-2013 End: 10-11-2024 Metoprolol Succinate 25 mg t ablet extended release 24 hr Discontinued 25 mg PO .COMPLEX 90 3 September 26, 2023 9:47am October 11, 2024 10:39am 25 mg orally daily with a 50 mg tablet to = 75 mg daily; Start: 06-19-2006 TOPROL XL 25 M G 24 HR TAB Metoprolol Kingston-Hydrochlorothiaz 50-12.5 mg tablet extended release 24 hr (2 sources) Start: 09-24-2017 End: 10-08-2017 Metoprolol Kingston-Hydrochlorothiaz 50-12.5 mg tablet extended release 24 hr Discontinued 1 {tbl} PO Q24H September 24, 2017 1:00am October 08, 2017 12:24pm omeprazole 40 mg delayed release oral capsule (6 sources) Proton Pump Inhibitor Start: 09-16-2013 End: 09-24-2017 take 1 capsule by mouth once daily Omeprazole 40 MG capsule Discontinued 40 mg PO DAILY September 16, 2013 1:00am September 24, 2017 11:41am Comment on above: Take 40 mg by mouth once daily. simvastatin 20 mg oral tablet (6 sources) HMG-CoA Reductase Inhibitor Start: 09-16-2013 End: [...] [Acute bronchitis, unspecified] 08-30-2022 Episodic Cardiac dysrhythmias (5 sources) Supraventricular arrhythmia; Translations: [Cardiac arrhythmia, unspecified] 02-28-2021 Chronic Contraceptive and procreative management (5 sources) Oral contraception; Translations: [Encounter for surveillance of contraceptive pills] 02-23-2019 Episodic Disorders of lipid metabolism (6 sources) Hypercholesterolemia; Translations: [Pure hypercholesterolemia, unspecified] Onset: 08-03-2012 08-03-2012 Chronic Esophageal disorders (1 source) Gastroesophageal reflux disease; Translations: [Gastro-esophageal reflux disease without esophagitis] Onset: 08-03-2012 08-03-2012 Chronic Heart valve disorders (6 sources) Mitral valve prolapse; Translations: [Nonrheumatic mitral (valve) prolapse] Onset: 08-03-2012 08-03-2012 Chronic Menopausal disorders (6 sources) Atrophic vaginitis; Translations: [Postmenopausal atrophic vaginitis] 02-04-2023 Chronic Comment on above: not problematic Menstrual disorders (6 sources) Menorrhagia; Translations: [Excessive and frequent menstruation with regular cycle] Chronic Comment on above: mirena 10/2017 Other female genital disorders (4 sources) Lesion of vulva; Translations: [Other specified [...] mammogram for malignant neoplasm of breast] Onset: 04-04-2025 Episodic Urinary tract infections (5 sources) Acute pyelonephritis; Translations: [Acute pyelonephritis] 02-23-2019 Episodic Results Test Name Value Interpretation Reference Range Facil ity Breast imaging reportOrdered By: Sanya Headley on 03-30-2025 Study report [facility] Imaging Services [address] [place], [place] [id number] SCRN MAMM (CAD)W/MARINO BILAT MR#: [id number] Acct: [id number] Name: BISI MENDEZ Rep #: [id number] : 1965 F 59 From: Jelani Headley MD PCP: Dr. Bisi Diez DO Status: REG CLI Study:SCRN MAMM (CAD)W/MARINO BILAT Date of Exa m: 03/30/25 Exam# [id number] Ordering Dr: Ekaterina Masterson LABOR ECONOMICS PROFESSOR LABOR ECONOMICS PROFESSOR-C EXAM: SCRN MAMM (CAD)W/MARINO BILAT DATE: 03/30/2025 CLINICAL HISTORY: F, Age 59 y/o , SCREENING MAMMOGRAM FOR BREAST CANCER Noncontributory. Remote right stereotactic breast biopsy. TECHNIQUE: SCRN MAMM (CAD)W/MARINO BILAT COMPARISON: Prior exam(s) dated March 24, 2024.. FINDINGS: TISSUE DENSITY: The breast tissue is composed of scattered areas of fibroglandular density. Bilateral Breast Mammographic Findings: No significant masses, calcifications or other abnormalities are identified. Stable small benign-appearing bilateral axillary lymph nodes. No suspicious masses, areas of developing architectural distortion, or suspicious calcifications. There has been no significant interval change. BI/SCRN MAMM (CAD)W/MARINO BILAT IMPRESSION: Stable examination. OVERALL FINAL ASSESSMENT BI-RADS 2: BENIGN RECOMMEND ANNUAL MAMMOGRAPHIC SCREENING. RECOMMENDATION: Routine annual follow-up in 1 Year A letter with findings and recommendations will be mailed to the patient. Reading Location: [facility] CC: LABOR ECONOMICS PROFESSOR-C Ekaterina Masterson; Dr. Bisi Diez DO ~ Vehicle Washer: Signed 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) Chief Complaint: Annual Methods And Procedures Analyst Required: No Is patient in pain?: No Allergies metronidazole (From Flagyl) Allergy (Verified 03/30/25 13:25) Rash Metronidazole HCl (From Flagyl) Allergy (Verified 03/30/25 13:25) Rash Medications ???Medication ???Instructions ???Recorded ???Confirmed ???Type levonorgestrel (Mirena) 1 insert intrauterine ONCE #1 ea 0 10/08/17 03/30/25 Rx lactobacillus combo no.11 15 1 cap PO QDAY 01/21/18 03/30/25 Hi story billion cell sprinkle capsule (Probiotic) ascorbic acid (vitamin C) 500 mg mg PO 02/23/20 03/30/25 History capsule cholecalciferol (vitamin D3) 25 25 mcg PO DAILY 02/23/20 03/30/25 History mcg (1,000 unit) capsule metoprolol succinate 50 mg 50 mg PO .COMPLEX #90 tabs 4 03/30/25 Rx tablet,extended release 24 hr metoprolol succinate 25 mg 25 mg PO .COMPLEX #90 tabs 5 03/30/25 Rx tablet,extended release 24 hr Is [...] safe at home: Yes additional social history: [employer] 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 Date Name GA/Weeks Outcome Route Bth Weight Infant Gen Labor Lgth Anesthesia Del Locatn Provider FOB Unknown 1992 [place] Female Unknown 1996 Nnamdi [facility] Encounter for routine gynecological examination Details: BISI MENDEZ is a 59 year old who presents for annual exam. Denies concerns Last PAP: 2020 History of abnormal PAP: no Last mammogram: today, pending History of abnormal mammogram: no Colon cancer screening: cologuard 2024 Other preventative health care screenings: Mal Female Reproductive History Questions: metorrhagia: No, sexually active: Yes, dyspareunia: No and PCB: No ROS Const Constitutional: Denies fatigue, weight gain or weight loss Cardio Card: Denies chest pain Resp Resp: Denies cough or dyspnea on exertion GI GI: Denies abdominal pain, bloating, change in stool character, constipation or vomiting : Reports as per HPI; Denies difficulty voiding, pelvic pain, urinary frequency, urinary incontinence, urinary urgency, vaginal discharge or vaginal pruritus Exam Const General: cooperative, healthy appearing, no acute distress and well developed Orientation: alert, oriented to person and oriented to place HENLA Head: normal to inspection Neck Neck: normal visual inspection Thyroid: thyroid normal Lymphatic: no lymphadenopathy noted Chest Breast inspection: normal inspection of the breasts and normal inspection of the axillae Breast palpation: normal palpation of the breasts, normal palpation of the axillae and no axillary lymphadenopathy Resp Effort Inspection: normal respiratory effort GI Palpation: soft, no masses and nontender Rectal Exam: deferred External Female Exam: normal external appearance and normal appearance of the urethra Urethra: normal appearance of the urethra and norm (more content not included)... Normal [facility] SCRN MAMM (CAD)W/MARINO BILATo n 03-30-2025 SCRN MAMM (CAD)W/MARINO BILAT [facility] Imaging Services [address] [place], [place] [address] SCRN MAMM (CAD)W/MARINO BILAT MR#: [id number] Acct: [id number] Name: BISI MENDEZ Rep #: [id number] : 1965 F 59 From: Sanya aguero MD PCP: Dr. Bisi Diez DO Status: [facility] Study: SCRN MAMM (CAD)W/MARINO BILAT Date of Exam: 03/07 02/27 Exam# [id number] Ordering Dr: Ekaterina Masterson NP LABOR ECONOMICS PROFESSOR -C EXAM: SCRN MAMM (CAD)W/MARINO BILAT DATE: 03/30/2025 CLINICAL HISTORY: F, Age 59 y/o , SCREENING MAMMOGRAM FOR BREAST CANCER Noncontributory. Remote right stereotactic breast biopsy. TECHNIQUE: SCRN MAMM (CAD)W/MARINO BILAT COMPARISON: Prior exam(s) dated March 24, 2024.. FINDINGS: TISSUE DENSITY: The breast tissue is composed of scattered areas of fibroglandular density. Bilateral Breast Mammographic Findings: No significant masses, calcifications or other abnormalities are identified. Stable small benign- appearing bilateral axillary lymph nodes. No suspicious masses, areas of developing architectural distortion, or suspicious calcifications. There has been no significant interval change. BI/SCRN MAMM (CAD)W/MARINO BILAT IMPRESSION: Stable examination. OVERALL FINAL ASSESSMENT BI-RADS 2: BENIGN RECOMMEND ANNUAL MAMMOGRAPHIC SCREENING. RECOMMENDATION: Routine annual follow-up in 1 Year A letter with findings and recommendations will be mailed to the patient. Reading Location: [facility] CC: LABOR ECONOMICS PROFESSOR-C Ekaterina Masterson; Dr. Bisi Diez DO Vehicle Washer: Signed Normal [facility] Herpes simplex virus (HSV) c ulture with typingOrdered By: Ekaterina Masterson on 02-07-2023 HSV identified Org specific cx Nom (Unsp spec) [facility] Absolute lymphocyte counton 05-13-2022 Lymphocytes Auto (Unsp spec) [#/Vol] 1.98 10*3/uL 0.83-4.51 [facility] Work Phone: Basophil percentageon 2021 Basophils/100 WBC (Bld) 0.6 % 0-1 [facility] Work Phone: Bilirubin [Mass/Vol] 0.50 mg/dL 0.20-1.00 [facility] Work Phone: Comment on above: For patients on eltr ombopag therapy, use of Dimension [place] TBIL is not recommended. Chloride [Moles/Vol] 108 mmol/L 98-107 [facility] Work Phone: Cholesterol [Mass/Vol] 200 mg/dL <200 [facility] Work Phone: Comment on above: <200 mg/dL Desirable 200-240 mg/dL Borderline >240 mg/dL High Risk Eosinophils/100 WBC (Bld) 3.6 % 0-5 [facility] Work Phone: Glucose [Mass/Vol] 89 mg/dL 74-106 [facility] Work Phone: Neutrophils (Bld) [#/Vol] 3.5 10*3/uL 2.0-7.7 [facility] Work Phone: Neutrophils/100 WBC (Bld) 56.3 % 47-70 [facility] Work Phone: Potassium [Moles/Vol] 3.8 mmol/L 3.5-5.1 [facility] Work Phone: Protein [Mass/Vol] 6.9 g/dL 6.4-8.2 [facility] Work Phone: Sodium [Moles/Vol] 140 mmol/L 136-145 [facility] Work Phone: Triglyceride [Mass/Vol] 101 mg/dL <199 [facility] Work Phone: Comment on above: The drugs N-Acetylcy steine and Metamizole may falsely depress this assay.Serum Triglycerides Reference Interval Normal <150 mg/dL Borderline high 150 - 199 mg/dL High 200 - 499 mg/dL Very High > or = 500 mg/dL WBC (Bld) [#/Vol] 6.2 10*3/uL 4.4-11.0 [facility] Work Phone: Blood erythrocytes count (nu mber/volume)on 05-13-2022 RBC (Bld) [#/Vol] 5.02 10*6/uL 4.2-5.4 [facility] Work Phone: Blood hemoglobin measurement (mass/volume)on 05-13-2022 Hemoglobin (Bld) [Mass/Vol] 15.2 g/dL 12.0-15.0 [facility] Work Phone: Blood lymphocytes/100 leukoc yteson 05-13-2022 Lymphocytes/100 WBC (Bld) 32.1 % 19-41 [facility] Work Phone: Blood monocytes/100 leukocyt eson 05-13-2022 Monocytes/100 WBC (Bld) 7.1 % 0-10 [facility] Work Phone: Blood platelet mean volumeon 05-13-2022 Platelet mean volume (Bld) [Entitic vol] 9.9 fL 6.2-12.0 [facility] Work Phone: Determination of erythrocyte mean corpuscular volume (MCV)on 05-13-2022 MCV (RBC) [Entitic vol] 89.6 fL 81-99 [facility] Work Phone: Hematocrit Auto (Bld) [Volum e fraction]on 05-13-2022 Hematocrit (Bld) [Volume fraction] 45.0 % 37-47 [facility] Work Phone: Laboratory - Chemistry and C hemistry - challengeon 05-13-2022 ALP [Catalytic activity/Vol] 62 U/L 45-117 [facility] Work Phone: ALT [Catalytic activity/Vol] 22 U/L 13-56 [facility] Work Phone: CO2 [Moles/Vol] 26.0 mmol/L 21.0-32.0 [facility] Work Phone: Globulin (S) [Mass/Vol] 3.3 g/dL 2.2-4.2 [facility] Work Phone: Urea nitrogen/Creatinine [Mass ratio] 31.0 mg/mg 10-20 [facility] Work Phone: Laboratory - Hematology and Cell countson 05-13-2022 Erythrocyte distribution width (RBC) [Entitic vol] 42.6 fL 35.1-43.9 [facility] Work Phone: Erythrocyte distribution width (RBC) [Ratio] 13.0 % 11.6-14.6 [facility] Work Phone: Immature granulocytes/100 WBC (Bld) 0.300 % 0.0-0.9 [facility] Work Phone: Comment on above: IG% - Immature Granu locytes (promyelocytes, myelocytes and metamyelocytes) > 1% indicates that a LEFT SHIFT is Present. MCH (RBC) [Entitic mass] 30.3 pg 27.0-32.0 [facility] Work Phone: Nucleated RBC/100 WBC (Bld) [Ratio] 0 % 0-5 [facility] Work Phone: MCHC Auto (RBC) [Mass/Vol]on 05-13-2022 MCHC (RBC) [Mass/Vol] 33.8 g/dL 32-36 [facility] Work Phone: No Panel Informationon 05-13 Estimated GFR (MDRD) Amer 95 mL/min >60 [facility] Work Phone: Comment on above: GFR Calc Estimated GFR (MDRD) Non-Af Amer 78 mL/min >60 [facility] Work Phone: Comment on above: Non- GFR Calc Platelets bldon 05-13-2022 Platelets (Bld) [#/Vol] 264 10*3/uL 150-450 [facility] Work Phone: Serum or plasma albumin nubia urement (mass/volume)on 05-13-2022 Albumin [Mass/Vol] 3.6 g/dL 3.2-5.0 [facility] Work Phone: Serum or plasma albumin/glob ulin mass ratioon 05-13-2022 Albumin/Globulin [Mass ratio] 1.1 {ratio} 0.9-2.4 [facility] Work Phone: Serum or plasma calcium nubia urement (mass/volume)on 05-13-2022 Calcium [Mass/Vol] 9.1 mg/dL 8.5-10.1 [facility] Work Phone: Serum or plasma cholesterol in HDL measurement (mass/volume)on 05-13-2022 Cholesterol in HDL [Mass/Vol] 41 mg/dL >40 [facility] Work Phone: Comment on above: The drugs N-Acetylcy steine and Metamizole may falsely depress this assay. Reference Range HDL <40 mg/dL Low HDL Cholesterol HDL >or= 60 mg/dL High HDL Cholesterol Serum or plasma cholesterol in VLDL measurement (mass/volume)on 05-13-2022 Cholesterol in VLDL [Mass/Vol] 20 mg/dL 5-40 [facility] Work Phone: Serum or plasma creatinine m easurement (mass/volume)on 05-13-2022 Creatinine [Mass/Vol] 0.81 mg/dL 0.55-1.02 [facility] Work Phone: Comment on above: The validity of the calculated GFR & GFRAA in patients over 70 years has not been determined. Clinical correlation is essential. Serum or plasma low density lipoprotein (LDL) cholesterol measurement (mass/volume)on 05-13-2022 Cholesterol in LDL [Mass/Vol] 139 mg/dL 0-130 [facility] Work Phone: Serum or plasma urea nitroge n measurement (mass/volume)on 05-13-2022 Urea nitrogen [Mass/Vol] 25 mg/dL 7-18 [facility] Work Phone: Thin prep Papanicolaou smear with manual screeningon 05-13-2022 Thin prep Papanicolaou smear with manual screening 15 U/L 15-37 [facility] Work Phone: Thin prep Papanicolaou smear with manual screening 6 5-15 [facility] Work Phone: Vital Signs Date Time Vital Sign Value Performing Clinician Faci lity 03-30-2025 13:18-0400 Body height 170.[address] Bisi Diez DO Work Phone: [facility] 03-30-2025 13:15-0400 Body mass index (BMI) [Ratio] 31.3 kg/m2 Dr. Bisi Diez DO Work Phone: [facility] 03-30-2025 13:15-0400 Body weight 90.[address] Bisi Diez DO Work Phone: [facility] 03-30-2025 13:15-0400 Diastolic blood pressure 82 mm[Hg] Dr. Bisi Diez DO Work Phone: [facility] 03-30-2025 13:15-0400 Systolic blood pressure 128 mm[Hg] Dr. Bisi Diez DO Work Phone: [facility] 03-19-2023 08:44-0400 Body height 170.[address] Bisi Diez Work Phone: [facility] 03-19-2023 08:44-0400 Diastolic blood pressure 76 mm[Hg] Dr. Bisi Diez Work Phone: [facility] 03-19-2023 08:44-0400 Systolic blood pressure 128 mm[Hg] Dr. Bisi Diez Work Phone: [facility] 03-19-2023 08:39-0400 Body mass index (BMI) [Ratio] 30.7 kg/m2 Dr. Bisi Diez Work Phone: [facility] 03-19-2023 08:39-0400 Body weight 88.[address] Bisi Diez Work Phone: [facility] 02-04-2023 08:09-0400 Body height 170.[address] Bisi Diez Work Phone: [facility] 02-04-2023 08:01-0400 Body mass index (BMI) [Ratio] 30.5 kg/m2 Dr. Bisi Diez Work Phone: [facility] 02-04-2023 08:01-0400 Body weight 88.[address] Bisi Diez Work Phone: [facility] 02-04-2023 08:01-0400 Diastolic blood pressure 82 mm[Hg] Dr. Bisi Diez Work Phone: [facility] 02-04-2023 08:01-0400 Systolic blood pressure 136 mm[Hg] Dr. Bisi Diez Work Phone: [facility] 01-16-2022 10:55-0400 Body height 170.[address] Bisi Diez Work Phone: [facility] Work Phone: 01-16-2022 10:55-0400 Body mass index (BMI) [Ratio] 28.3 kg/m2 Dr. Bisi Diez Work Phone: [facility] Work Phone: 01-16-2022 10:55-0400 Body weight 82.[address] Bisi Diez Work Phone: [facility] Work Phone: 01-16-2022 10:55-0400 Diastolic blood pressure 76 mm[Hg] Dr. Bisi Diez Work Phone: [facility] Work Phone: 01-16-2022 10:55-0400 Systolic blood pressure 118 mm[Hg] Dr. Bisi Diez Work Phone: [facility] Work Phone: Encounters Encounter Date Encounter Type Care Provider Facility Start: 03-30-2025 End: 03-30-2025 Patient encounter status Ekaterina Nances LABOR ECONOMICS PROFESSOR-C [facility] Start: 03-30-2025 End: 03-30-[address] Bisi Diez DO Work Phone: [facility] Work Phone: Start: 03-30-2025 End: 03-30-2025 Patient encounter procedure Ekaterina Krishnamurthytings LABOR ECONOMICS PROFESSOR-C [facility] Work Phone: Start: 03-30-2025 End: 03-30-2025 ambulatory Ekaterina [place] LABOR ECONOMICS PROFESSOR Facility:[facility] Start: 03-19-2023 End: 03-19-[address] Bisi Diez Work Phone: [facility] Work Phone: Start: 03-19-2023 End: 03-19-[address] Bisi Diez Work Phone: [facility] Start: 02-04-2023 End: 02-04-[address] Bisi Diez Work Phone: [facility] Work Phone: Start: 02-04-2023 End: 02-04-[address] Bisi Diez Work Phone: [facility]-Laboratory, Specimen Start: 02-04-2023 End: 02-04-[address] Bisi Diez Work Phone: [facility] Start: 05-13-2022 End: 05-13-[address] [facility] [place] Start: 01-16-2022 End: 01-16-[address] Bisi Diez Work Phone: [facility]-Outpatient Breast Imaging Start: 10-04-2016 End: 10-04-2016 Refill Ekaterina Masterson Work Phone: OB/Gynecology Comment on above: Refill Request Procedures Date Procedure Procedure Detail Performing Clinician Start: 03-30-2025 Screening mammography D rJay Diez DO Work Phone: Start: 03-19-2023 Screening mammography D julian Diez Work Phone: Start: 01-16-2022 Screening mammography D julian Diez Work Phone: Start: 09-19-2016 Colonoscopy Ekaterina Hast ings Work Phone: Start: 09-19-2016 Mammography Ekaterina Hast ings Work Phone: Herpes simplex virus culture Dr. Bisi Diez Work Phone: Plan of Treatment Date Care Activity Detail Author Start: 03-30-2025 Screening mammography SCRN CHASIDY M (CAD)W/MARINO BILAT [facility] Start: 06-06-2021 Influenza vaccination INFLUENZ A (Season Ended) [facility] Start: 09-19-2017 Mammography MAMMOGRAM [facility] Start: 09-19-2017 Screening for malign ant neoplasm of colon [facility] Start: 08-03-2017 HPV TESTING HPV TESTING [facility] Start: 08-03-2017 LIPID SCREEN LIPID SCREEN [facility] Start: 08-03-2017 PAP TESTING PAP TESTING [facility] Start: 2016 Screening for malign ant neoplasm of colon [facility] Start: 2016 SHINGRIX VACCINE (1 of 2) BERMEO GRIX VACCINE (1 of 2) [facility] Start: 08-03-2015 DIABETES SCREEN DIABETES SCREEN [facility] Start: 1985 Urine microalbumin profile DTAP,TDAP,TD (1 - Tdap) [facility] Start: 1984 HEPATITIS C SCREENING HEPATITIS C SC REENING [facility] Start: 1984 HIV SCREENING HIV SCREENING [facility] Start: 1978 Adult depression screening assessment DEPRESSION SCREENING [facility] Immunizations Immunization Date Immunization Notes Care Provider Lore del rosario 07-21-2014 influenza, seasonal, injectable Ekaterina Aleja Work Phone: [facility] 08-21-2013 influenza virus vacc ine, unspecified formulation Ekaterina [place] Work Phone: [facility] 08-15-2012 influenza virus vacc ine, unspecified formulation Ekaterina [place] Work Phone: [facility] 07-13-2011 influenza virus vacc ine, unspecified formulation Ekaterina Aleja Work Phone: [facility] 07-21-2010 influenza virus vacc ine, unspecified formulation Ekaterina Aleja Work Phone: [facility] Payers Date Payer Category Payer Self-pay [id number] 2024 Unknown [id number] 2014 Unknown MMO MMO [employer] [id number] 2014-Present PPO [id number] Unknown [id number] Unknown [id number] Social History Date Type Detail Facility Start: 09-19-2016 End: 06-20-2023 Tobacco smoking status SCIS Never smoker [facility] Start: 09-19-2016 Tobacco use and exposure Never used [facility] Start: 09-19-2016 Alcohol intake Current drinke r of alcohol (finding) [facility] Start: 09-08-2007 Alcohol Comment rare/social [facility] Start: 1965 Sex Assigned At Not on file [facility] Start: 01-16-2022 End: 03-19-2023 Tobacco smoking status NHIS Unknown if ever smoked [facility] Start: 03-14-2021 Rare [facility] Start: 03-14-2021 None [facility] Start: 03-14-2021 Homeless [facility] Start: 03-14-2021 Non-smoker [facility] Start: 1965 Sex Assigned At Female W [facility] Evaluation note 03-30-2025 Note Date & Type Note Facility 03-30-2025 Evaluation note Diagnosis Onset Date Resolution Encounter for routine gynecological examination noneactive March 30, 2025 1:11pm [facility] Work Phone: Progress note 03-30-2025 Note Date & Type Note Facility 03-30-[address] [facility] Note 10-08-2016 Telephone Encounter - Ekaterina Masterson [...] drawn. Please advise. documented in this encounter [facility] Evaluation note Note Date & Type Note Facility Evaluation note Diagnosis Onset Date Menorrhagia chronic Encounter for routine gyneco logical examination noneactive [facility] Work Phone: Evaluation note Note Date & Type Note Facility Evaluation note Diagnosis Onset Date Atrophic vaginitis acute Vulval lesion acute Vaginal odor noneactive [facility] Work Phone: Evaluation note Note Date & Type Note Facility Evaluation note Diagnosis Onset Date Atrophic vaginitis acute Vulval lesion resolved Vaginal odor noneactive Encounter for routine gyneco logical examination noneactive [facility] Work Phone: Evaluation note Note Date & Type Note Facility Evaluation note Diagnosis Onset Date Resolution Encounter for routine gynecological examination noneactive March 30, 2025 1:11pm [facility] Work Phone: Progress note Note Date & Type Note Facility Progress note Note Date/Time March 30, 2025 1:34pm [facility] [address], [address] [place] [address] OFFICE VISIT Date of Service: 03/30/25 MR#: [id number] Acct: [id number] Name: BISI MENDEZ Rep #: [id number] : 1965 Provider: OFELIA Masterson Age/Sex: 59/F [place] [facility] Status: Signed Intake Vital Signs 03/24/24 09:20 03/30/25 13:15 03/30/25 13:18 Height 5 ft 7 in 5 ft 7 in 5 ft 7 in Weight: 200 lb BMI 31.3 BP 128/82 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 Date Name GA/Weeks Outcome Route Bth Weight Gen Labor Lgth Anesthesia Del Locatn Provider FOB Unknown 1992 [place] Female Unknown 1996 Nnamdi [facility] Encounter for routine gynecological examination Details: BISI [...] oriented to person and oriented to place HENMT Head: normal to inspection Neck Neck: normal [...] 66 RTO 1 year, prn with problems Ekaterian Masterson SEISMOLOGY TEACHER 03/30/25 1335 <Electronically signed by Ekaterina porter LABOR ECONOMICS PROFESSOR LABOR ECONOMICS PROFESSOR-C> Date _ Ekaterina Masterson LABOR ECONOMICS PROFESSOR LABOR ECONOMICS PROFESSOR-C Cosigner Signature: Date (if applicable) CC: ~ [facility] Work Phone: Reason for referral (narrative) Note Date & Type Note Facility Reason for referral (narrative) No reason for referral information available [facility] Work Phone: Chief Complaint and Reason for Visit Chief Complaint 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) Reason for Visit Menorrhagia Encounter for routine gynecological examination Chief Complaint PAINFUL VAGINAL BUMP Other specified noninflammatory disorders of vagin Reason for Visit Atrophic vaginitis Vulval lesion Vaginal odor Chief Complaint PAINFUL VAGINAL BUMP Other specified noninflammatory disorders of vagin 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) Reason for Visit Atrophic vaginitis Vulval lesion Vaginal odor Encounter for routine gynecological examination Chief Complaint Admit Date SCREENING March 30, 2025 12:3 7pm 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 Bisi Diez DO Primary Care Provider Active Ekaterina Masterson NP, LABOR ECONOMICS PROFESSOR-C Attending Provider, Referring Provider Active Team Status: Active Member Role Status Dates Dr. Bisi Diez DO Primary Care Provider Active Team Status: Active Member Role Status Dates Dr. Bisi Diez DO Primary Care Provider Active Start: March 30, 2025 Ekaterina Masterson LABOR ECONOMICS PROFESSOR, LABOR ECONOMICS PROFESSOR-C Attending Provider Active Start: March 30, 2025 Ekaterina Masterson LABOR ECONOMICS PROFESSOR, LABOR ECONOMICS PROFESSOR-C Referring Provider Active Start: March 30, 2025 Team Status: Inactive Member Role Status Dates Dr. Bisi Diez DO Primary Care Provider Active Start: March 30, 2025 End: March 30, 2025 Dr. Bisi Diez DO Referring Provider Active St art: March 30, 2025 End: March 30, 2025 Ekaterina Masterson LABOR ECONOMICS PROFESSOR, LABOR ECONOMICS PROFESSOR-C Attending Provider Active Start: March 30, 2025 End: March 30, 2025 Team Status: Active Member Role/Relationship Status Dates Dr. Bisi Diez DO Primary Care Provider Active Team Status: Inactive Member Role/Relationship Status Dates Dr. Bisi Diez DO Primary Care Provider Active Start: March 30, 2025 End: March 30, 2025 Ekaterina Masterson LABOR ECONOMICS PROFESSOR, LABOR ECONOMICS PROFESSOR-C Attending Provider Active Start: March 30, 2025 End: March 30, 2025 Ekaterina Masterson LABOR ECONOMICS PROFESSOR, LABOR ECONOMICS PROFESSOR-C Referring Provider Active Start: March 30, 2025 End: March 30, 2025 Team Status: Inactive Member Role/Relationship Status Dates Dr. Bisi Diez DO Primary Care Provider Active Start: March 30, 2025 End: March 30, 2025 Dr. Bisi Diez DO Referring Provider Active St art: March 30, 2025 End: March 30, 2025 Ekaterina Masterson LABOR ECONOMICS PROFESSOR, LABOR ECONOMICS PROFESSOR-C Attending Provider Active Start: March 30, 2025 End: March 30, 2025 INFORMATION SOURCE (unrecogn ized section and content) DATE CREATED AUTHOR 04/05/2025 [facility] FOR RECORDS PERTAINING TO PATIENTS WHO [...] BE BASED ON THE PRIMARY CLINICAL RECORDS. [facility] [employer] provides no warranty or guarantee of the accuracy or completeness of information in this document.
[2025-04-21 10:44] LABS: Hematocrit 45.5 % (37-47); Hemoglobin 15.2 g/dL (12.0-15.0); Immature Granulocytes Count 0.040 X10^3/uL (0.0-0.0); Mean Corp Hgb Conc 33.4 g/dL (32-36); Mean Corpuscular Volume 89.0 fL (81-99); Mean Platelet Vol. 10.0 fl (6.2-12.0); NRBC Flagged by Analyzer 0 % (0-5); Platelet Count 279 K/mm3 (150-450); RBC Distribution Width CV 12.8 % (11.6-14.6); RBC Distribution Width SD 42.3 fl (35.1-43.9); Red Blood Count 5.11 M/mm3 (4.2-5.4); White Blood Count 6.0 K/mm3 (4.4-11.0)
[2025-04-21 11:15] LABS: AST(SGOT) 20 U/L (<=31); Alanine Aminotransfer ALT/SGPT 30 U/L (<=34); Albumin, Serum 4.3 g/dL (3.5-5.0); Alkaline Phosphatase 67 U/L (35-104); Anion Gap 13 (5-15); BUN 24 mg/dL (4-19); BUN/Creat Ratio 33.0 RATIO (10-20); Calcium,Total 9.5 mg/dL (7.6-11.0); Carbon Dioxide 23.2 mmol/L (21.0-32.0); Chloride 105 mmol/L (98-108); Cholesterol 208 mg/dL (<=200); Globulin 2.9 g/dL (2.2-4.2); Glucose 91 mg/dL (70-99); Low Density Lipoprotein Calc. 141 mg/dL; Potassium 4.0 mmol/L (3.3-5.1); Triglycerides 139 mg/dL; Very Low Density Lipoprotein 28 mg/dL (5-40); cholesterol:hdl ratio screen 5.25
== END | disposition home or self-care (01) ==
LOC: MTLAB 07:18
PROVIDERS: PCP Family Medicine; Visit Provider Family Medicine
DX: E78.5 Hyperlipidemia, unspecified (principal); Z51.81 Encounter for therapeutic drug level monitoring
CPT/HCPCS: 36415; 80053; 80061; 85025